=== PATIENT | male | born 1935 | race American Indian/Alaskan Native ===

== ENCOUNTER 2021-03-11 15:03 | Inpatient (IN) | payer MEDICARE ==
--- NOTE | 2021-03-11 15:42 | XRay Report ---
CHEST 1 VIEW INDICATION: RESP DISTRESS. COMPARISON: None FINDINGS: Support devices: None. Heart: Within normal limits. Lungs/Pleura: Subtle bibasilar lung infiltrates are identified. No pleural effusion or pneumothorax. Additional findings: None. IMPRESSION: Bibasilar lung infiltrates. Atypical pneumonia such as Covid is not excluded. Signer Name: Ezequiel Kothari Jr, MD Signed: 03/11/2021 3:37 PM Workstation Name: [id number]
[2021-03-11 16:11] LABS: Basophils % (Auto) 0.1 % (0.0-1.8); Eosinophils % (Auto) 0.4 % (0.0-4.3); Hematocrit 37.8 % (35.5-45.6); Lymphocytes # (Auto) 0.6 K/mm3 (1.2-5.4); Lymphocytes % (Auto) 5.1 % (13.4-35.0); Mean Corpuscular HGB Conc 32 % (32-34); Mean Corpuscular Volume 90 fl (84-94); Monocytes # (Auto) 0.6 K/mm3 (0.0-0.8); Monocytes % (Auto) 4.6 % (0.0-7.3); Red Blood Count 4.21 M/mm3 (3.65-5.03); Red Cell Distribution Width 13.8 % (13.2-15.2)
[2021-03-11] MEDS ORDERED: dexAMETHasone 20 MG/5 ML VIAL IV ONE (16:15)
--- NOTE | 2021-03-11 16:15 | Emergency Department Report ---
ED Shortness of Breath HPI - General Chief Complaint: Dyspnea/Respdistress Stated Complaint: AMS/RESP Time Seen by Provider: 03/11/21 15:17 Source: EMS, old records reviewed (No previous medical record) Mode of arrival: Stretcher Limitations: Altered Mental Status - History of Present Illness Initial Comments: 85-year-old male with a past medical history of dementia, hypertension diabetes, recent Covid infection [facility] that started at 1 PM. Patient remained saturation was reported to be 87. He was placed in our breather during hospital 97% in transport. Blood glucose 78 as per EMS. As per [facility] patient was diagnosed with COVID-19 on March 02. Patient is unable to provide any history of present illness - Related Data Allergies Allergy/AdvReac Type Severity Reaction Status Date / Time No Known Allergies Allergy Unverified 03/11/21 15:05 ED Review of Systems ROS: Stated complaint: AMS/RESP Other details as noted in HPI Comment: Unobtainable due to pts medical conditions ED Past Medical Hx - Past Medical History Hx Hypertension: Yes Hx Diabetes: Yes Hx Dementia: Yes - Surgical History Past Surgical History?: No ED Physical Exam - General Limitations: Altered Mental Status - Other Other exam information: General: No acute distress Head: Atraumatic Eyes: normal appearance Neck: Normal appearance, no midline tenderness Chest: Tachypnea, clear breath CV: Regular rate and rhythm Abdomen: Soft, normal bowel sounds, nontender, nondistended, no rebound or guarding Back: Normal inspection Extremity: Left arm edema with decreased movement compared to the right Neuro: Awake speaking, following intermittent commands, 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 Equal lower extremity movement Skin: No rash ED Course Vital Signs 03/11/21 03/11/21 03/11/21 15:12 17:16 18:15 Temperature 98.1 F Pulse Rate 81 87 84 Respiratory 16 17 24 Rate Blood Pressure 96/52 Blood Pressure 139/76 88/54 [Left] O2 Sat by Pulse 90 94 97 Oximetry 03/11/21 03/11/21 03/11/21 18:31 18:45 19:01 Temperature Pulse Rate 87 82 81 Respiratory 25 H 20 22 Rate Blood Pressure 87/53 95/53 101/49 Blood Pressure [Left] O2 Sat by Pulse 99 100 99 Oximetry - Reevaluation(s) Reevaluation #1: 03/11/21 17:40 As of when the patient was hypoglycemic and D50 IV was ordered by nurse. There was a delay in receiving D50 due to national shortage and there was not any D50 ampules in the emergency department and a delay in obtaining it from pharmacy. Patient received glucagon and Zofran IM. I was informed at that time the patien t did not have IV access as requested prior. At this time I was also informed that patient was hypotensive with a systolic in the 80s. Patient prepped for emergent central line and had right femoral central line access obtained. D50 was then obtained at this time and administered through central line. D5 NS and 30 mL/kg bolus of normal saline ordered for IV infusion as per sepsis protocol. Lactic acid obtained due to no hypotension. Patient awaiting IV antibiotic and Decadron administration as ordered several hours ago 03/11/21 17:42 - Central Line Placement Right Femoral Consent Obtained: emergent situation Time Out Performed: Yes Patient Placed on Monitor/Pulse Ox: Yes MD Prep: mask, gown, gloves Central Line Prep: Chlorhexidine scrub Local Anesthesia Used: Lidocaine 1% Amount of Anesthesia Used (mls): 5 Ultrasound Used for Placement: No Central Line Lumen Inserted: triple Reason for Insertion: Emergency Venous Access Bloods Obtained for Lab: Yes Central Line Position: good blood return, sutured in place with nyl Dressing Applied: Tegaderm Patient Tolerated Procedure: well Complications: none ED Medical Decision Making - Lab Data Result diagrams: 03/11/21 15:29 03/11/21 15:29 Lab Results 03/11/21 03/11/21 03/11/21 Range/Units 15:29 15:29 15:29 WBC 12.7 H (4.5-11.0) K/mm3 RBC 4.21 (3.65-5.03) M/mm3 Hgb 12.0 (11.8-15.2) gm/dl Hct 37.8 (35.5-45.6) % MCV 90 (84-94) fl MCH 28 (28-32) pg MCHC 32 (32-34) % RDW 13.8 (13.2-15.2) % Plt Count 97 L (140-440) K/mm3 Lymph % (Auto) 5.1 L (13.4-35.0) % Thomas % (Auto) 4.6 (0.0-7.3) % Eos % (Auto) 0.4 (0.0-4.3) % Baso % (Auto) 0.1 (0.0-1.8) % Lymph # (Auto) 0.6 L (1.2-5.4) K/mm3 [place] # (Auto) 0.6 (0.0-0.8) K/mm3 Eos # (Auto) 0.0 (0.0-0.4) K/mm3 Baso # (Auto) 0.0 (0.0-0.1) K/mm3 Seg Neutrophils % 89.8 H (40.0-70.0) % Seg Neutrophils # 11.4 H (1.8-7.7) K/mm3 PT 13.9 (12.2-14.9) Sec. INR 0.96 (0.87-1.13) APTT 26.8 (24.2-36.6) Sec. ABG pH (7.350-7.450) pH Units ABG pCO2 mm Hg ABG pO2 (80.0-90.0) mm Hg ABG HCO3 (20.0-26.0) mmol/L ABG O2 Saturation (95.0-99.0) % ABG O2 Content (0.0-44) ABG Base Excess (-2.0-3.0) mmol/L ABG Hemoglobin (14.0-18.0) gm/dl ABG Carboxyhemoglobin (0.0-5.0) % ABG Methemoglobin (0.0-1.5) % Oxyhemoglobin (95.0-99.0) % FiO2 % Sodium 141 (137-145) mmol/L Potassium 5.4 H (3.6-5.0) mmol/L Chloride 111.6 H (98-107) mmol/L Carbon Dioxide 17 L (22-30) mmol/L Anion Gap 18 mmol/L BUN 77 H (9-20) mg/dL Creatinine 1.9 H (0.8-1.3) mg/dL Estimated GFR 34 ml/min BUN/Creatinine Ratio 41 % Glucose 64 L (75-100) mg/dL POC Glucose (70-105) mg/dL Lactic Acid (0.7-2.0) mmol/L Calcium 9.5 (8.4-10.2) mg/dL Total Bilirubin 0.50 (0.1-1.2) mg/dL AST 31 (5-40) units/L ALT 27 (7-56) units/L Alkaline Phosphatase 86 (35-129) units/L Total Creatine Kinase 107 (55-170) units/L CK-MB (CK-2) 3.4 (0.0-4.0) ng/mL CK-MB (CK-2) Rel Index 3.1 (0-4) Troponin T 0.041 H (0.00-0.029) ng/mL NT-Pro-B Natriuret Pep 143.1 (0-900) pg/mL Total Protein 6.1 L (6.3-8.2) g/dL Albumin 2.8 L (3.9-5) g/dL Albumin/Globulin Ratio 0.8 % Triglycerides 141 (2-149) mg/dL Cholesterol 129 (50-199) mg/dL LDL Cholesterol Direct 65 (50-130) mg/dL HDL Cholesterol 37 L (40-59) mg/dL Cholesterol/HDL Ratio 3.48 % 03/11/21 03/11/21 03/11/21 Range/Units 15:35 16:41 17:10 WBC (4.5-11.0) K/mm3 RBC (3.65-5.03) M/mm3 Hgb (11.8-15.2) gm/dl Hct (35.5-45.6) % MCV (84-94) fl MCH (28-32) pg MCHC (32-34) % RDW (13.2-15.2) % Plt Count (140-440) K/mm3 Lymph % (Auto) (13.4-35.0) % [place] % (Auto) (0.0-7.3) % Eos % (Auto) (0.0-4.3) % Baso % (Auto) (0.0-1.8) % Lymph # (Auto) (1.2-5.4) K/mm3 Thomas # (Auto) (0.0-0.8) K/mm3 Eos # (Auto) (0.0-0.4) K/mm3 Baso # (Auto) (0.0-0.1) K/mm3 Seg Neutrophils % (40.0-70.0) % Seg Neutrophils # (1.8-7.7) K/mm3 PT (12.2-14.9) Sec. INR (0.87-1.13) APTT (24.2-36.6) Sec. ABG pH 7.385 (7.350-7.450) pH Units ABG pCO2 34.0 mm Hg ABG pO2 62.9 L (80.0-90.0) mm Hg ABG HCO3 19.8 L (20.0-26.0) mmol/L ABG O2 Saturation 92.7 L (95.0-99.0) % ABG O2 Content 14.9 (0.0-44) ABG Base Excess -4.5 L (-2.0-3.0) mmol/L ABG Hemoglobin 11.7 L (14.0-18.0) gm/dl ABG Carboxyhemoglobin 1.3 (0.0-5.0) % ABG Methemoglobin 0.5 (0.0-1.5) % Oxyhemoglobin 91.0 L (95.0-99.0) % FiO2 35 % Sodium (137-145) mmol/L Potassium (3.6-5.0) mmol/L Chloride (98-107) mmol/L Carbon Dioxide (22-30) mmol/L Anion Gap mmol/L BUN (9-20) mg/dL Creatinine (0.8-1.3) mg/dL Estimated GFR ml/min BUN/Creatinine Ratio % Glucose (75-100) mg/dL POC Glucose 30 L 30 L (70-105) mg/dL Lactic Acid (0.7-2.0) mmol/L Calcium (8.4-10.2) mg/dL Total Bilirubin (0.1-1.2) mg/dL AST (5-40) units/L ALT (7-56) units/L Alkaline Phosphatase (35-129) units/L Total Creatine Kinase (55-170) units/L CK-MB (CK-2) (0.0-4.0) ng/mL CK-MB (CK-2) Rel Index (0-4) Troponin T (0.00-0.029) ng/mL NT-Pro-B Natriuret Pep (0-900) pg/mL Total Protein (6.3-8.2) g/dL Albumin (3.9-5) g/dL Albumin/Globulin Ratio % Triglycerides (2-149) mg/dL Cholesterol (50-199) mg/dL LDL Cholesterol Direct (50-130) mg/dL HDL Cholesterol (40-59) mg/dL Cholesterol/HDL Ratio % 03/11/21 03/11/21 03/11/21 Range/Units 17:46 18:35 18:35 WBC (4.5-11.0) K/mm3 RBC (3.65-5.03) M/mm3 Hgb (11.8-15.2) gm/dl Hct (35.5-45.6) % MCV (84-94) fl MCH (28-32) pg MCHC (32-34) % RDW (13.2-15.2) % Plt Count (140-440) K/mm3 Lymph % (Auto) (13.4-35.0) % Thomas % (Auto) (0.0-7.3) % Eos % (Auto) (0.0-4.3) % Baso % (Auto) (0.0-1.8) % Lymph # (Auto) (1.2-5.4) K/mm3 Thomas # (Auto) (0.0-0.8) K/mm3 Eos # (Auto) (0.0-0.4) K/mm3 Baso # (Auto) (0.0-0.1) K/mm3 Seg Neutrophils % (40.0-70.0) % Seg Neutrophils # (1.8-7.7) K/mm3 PT (12.2-14.9) Sec. INR (0.87-1.13) APTT (24.2-36.6) Sec. ABG pH (7.350-7.450) pH Units ABG pCO2 mm Hg ABG pO2 (80.0-90.0) mm Hg ABG HCO3 (20.0-26.0) mmol/L ABG O2 Saturation (95.0-99.0) % ABG O2 Content (0.0-44) ABG Base Excess (-2.0-3.0) mmol/L ABG Hemoglobin (14.0-18.0) gm/dl ABG Carboxyhemoglobin (0.0-5.0) % ABG Methemoglobin (0.0-1.5) % Oxyhemoglobin (95.0-99.0) % FiO2 % Sodium (137-145) mmol/L Potassium (3.6-5.0) mmol/L Chloride (98-107) mmol/L Carbon Dioxide (22-30) mmol/L Anion Gap mmol/L BUN (9-20) mg/dL Creatinine (0.8-1.3) mg/dL Estimated GFR ml/min BUN/Creatinine Ratio % Glucose (75-100) mg/dL POC Glucose 195 H (70-105) mg/dL Lactic Acid 1.80 (0.7-2.0) mmol/L Calcium (8.4-10.2) mg/dL Total Bilirubin (0.1-1.2) mg/dL AST (5-40) units/L ALT (7-56) units/L Alkaline Phosphatase (35-129) units/L Total Creatine Kinase (55-170) units/L CK-MB (CK-2) (0.0-4.0) ng/mL CK-MB (CK-2) Rel Index (0-4) Troponin T 0.016 (0.00-0.029) ng/mL NT-Pro-B Natriuret Pep (0-900) pg/mL Total Protein (6.3-8.2) g/dL Albumin (3.9-5) g/dL Albumin/Globulin Ratio % Triglycerides (2-149) mg/dL Cholesterol (50-199) mg/dL LDL Cholesterol Direct (50-130) mg/dL HDL Cholesterol (40-59) mg/dL Cholesterol/HDL Ratio % - EKG Data -: EKG Interpreted by Me (Nonspecific intraventricular conduction delay with LAD, no STEMI, artifact) EKG shows normal: sinus rhythm, ST-T waves (No ST elevation) Rate: normal (86) - EKG Data When compared to previous EKG there are: previous EKG unavailable - Radiology Data Radiology results: report reviewed CHEST 1 VIEW INDICATION: RESP DISTRESS. COMPARISON: None FINDINGS: Support devices: None. Heart: Within normal limits. Lungs/Pleura: Subtle bibasilar lung infiltrates are identified. No pleural effusion or pneumothorax. Additional findings: None. IMPRESSION: Bibasilar lung infiltrates. Atypical pneumonia such as Covid is not excluded. - Medical Decision Making 85-year-old male [facility] with recent COVID-19 diagnosis. X-ray confirms infiltrates. Patient also had episode of hypoglycemia and hypotension if treated with D50 and IV fluid bolus with improvement. Central line placed since nursing staff had difficulty obtaining peripheral IV access and to treat patient's hypotension. Patient does have mild elevation troponin with renal insufficiency with elevated BUN to creatinine ratio suggestive of dehydration. Mild hyperkalemia noted without peaked T waves on EKG. Patient placed on D5 NS. In addition to 30 MO KG bolus of normal saline. Antibiotics ordered for community-acquired pneumonia. Decadron for Covid related hypoxia/pneumonia. Patient requiring supplemental oxygenation for acute hypoxia. hospitalist to admit Critical Care Time: Yes Critical care time in (mins) excluding proc time.: 35 Critical care attestation.: If time is entered above; I have spent that time in minutes in the direct care of this critically ill patient, excluding procedure time. Critical Care Time: 35 Minutes of critical care time excluding procedures were used in the care of the patient. I discussed treatment plan with the nursing team members. I reviewed electronic record. Patient required multiple interventions and reassessments. ED Disposition Clinical Impression: COVID-19, Pneumonia, Acute respiratory failure with hypoxia, Sepsis, Hypoglycemia, Dementia, Renal insufficiency, Elevated troponin, Thrombocytopenia Disposition: 09 ADMITTED INPATIENT Is pt being admited?: Yes Condition: Stable Instructions: Bacterial Pneumonia (ED) Time of Disposition: 18:54 (Dr Khan/hospitalist)
[2021-03-11] MEDS ORDERED: cefTRIAXone/NS 2 GM/100 ML 2 GM/100 ML BAG IV ONE (16:16)
[2021-03-11 16:20] LABS: ABG Base Excess -4.5 mmol/L (-2.0-3.0); ABG HCO3 19.8 mmol/L (20.0-26.0); ABG Methemoglobin 0.5 % (0.0-1.5); ABG Oxygen Saturation 92.7 % (95.0-99.0); ABG PH 7.385 pH Units (7.350-7.450); ABG PO2 62.9 mm Hg (80.0-90.0)
[2021-03-11 16:22] LABS: Platelet Count 97 K/mm3 (140-440)
[2021-03-11 16:24] LABS: Creatine Kinase MB 3.4 ng/mL (0.0-4.0)
[2021-03-11 16:25] LABS: Albumin 2.8 g/dL (3.9-5); Calcium 9.5 mg/dL (8.4-10.2)
[2021-03-11] MEDS ORDERED: DEXTROSE 50% IN WATER (25GM) 50 ML SYRINGE IV ONE (16:35)
[2021-03-11 16:37] LABS: Chol/HDL Ratio 3.48 %; INR 0.96 (0.87-1.13); Partial Thromboplastin Time 26.8 Sec. (24.2-36.6)
[2021-03-11] MEDS ORDERED: DEXTROSE 10% *Hypoglycemia IV PRN (16:48)
[2021-03-11] MEDS ORDERED: ASPIRIN 300 MG RECT SUPP PR ONE (16:48)
[2021-03-11] MEDS ORDERED: GLUCAGON (HUMAN RECOMBINANT) 1 MG/ML INJ ONE (16:49)
[2021-03-11] MEDS ORDERED: GLUCAGON (HUMAN RECOMBINANT) 1 MG/ML INJ IV ONE (16:49)
[2021-03-11] MEDS ORDERED: ONDANSETRON 4 MG/2 ML INJ IV ONE (16:52)
[2021-03-11] MEDS ORDERED: ONDANSETRON 4 MG/2 ML INJ ONE (16:53)
[2021-03-11] MEDS ORDERED: AZITHROMYCIN/NS 500 MG/250 ML 500 MG/250 ML BAG IV ONE (17:00)
[2021-03-11] MEDS ORDERED: D5W/0.45% NACL 1,000 ML IV SCH (17:00)
[2021-03-11] MEDS ORDERED: SODIUM CHLORIDE 0.9% 1000 ML IV SOLN IV ONE (17:39)
[2021-03-11] MEDS ORDERED: D5W/0.9% NACL 1,000 ML IV SCH (18:00)
--- NOTE | 2021-03-11 20:08 | History and Physical Report ---
History of Present Illness Date of examination: 03/11/21 Date of admission: 03/11/2021 Chief complaint: Shortness of breath since a.m. History of present illness: 85-year-old male with recent history of Covid Pneumonia sent from the [facility] for severe respiratory distress and found.. Patient saturations were 87. Patient was placed on nonrebreather and oxygen went up to 97%. Blood glucose was 78 as per EMS. Patient continued to be short of breath in the emergency room. Very poor historian. Patient was diagnosed with COVID-19 on March 02. Since then he has been slowly deteriorating. In the emergency room patient became hypotensive and had to be started on dopamine drip--hence ICU admission - Past Medical History --Hypertension: Yes --Diabetes: Yes --Dementia: Yes - Surgical History -- No - Social history --lives in [facility] --Not a smoker or alcohol - Family history -- unavailable Review of Systems ROS: Constitutional no weight loss or weight gain no fever or chills HEENT no sore throat no post nasal drip no diplopia Neck no neck stiffness no lymph gland enlargement Chest and lungs short of breath CVS no chest pain no diaphoresis no palpitations GI no nausea no vomiting no diarrhea Genitourinary system no dysuria no flank pain Musculoskeletal system no muscle pains no joint pains LEAD COOK no syncope no seizures Skin no rash no itching Psychiatric no depression no homicidal or suicidal tendencies Hematologic no lymphedema or bruising Endocrine no polydipsia no polyuria no cold intolerance no heat intolerance Medications and Allergies Allergies Allergy/AdvReac Type Severity Reaction Status Date / Time No Known Allergies Allergy Unverified 03/11/21 15:05 Active Meds: Active Medications Dextrose (Dextrose 10% *Hypoglycemia) 0 ml IV PRN PRN PRN Reason: Hypoglycemia Dextrose/Sodium Chloride (D5ns) 1,000 mls @ 150 mls/hr IV DIRECT MARIA DOLORES Exam - Constitutional Vitals: Temp Pulse Resp BP Pulse Ox 98.1 F 81 22 101/49 99 03/11/21 15:12 03/11/21 19:01 03/11/21 19:01 03/11/21 19:01 03/11/21 19:01 General appearance: Present: severe distress, well-nourished - EENT Eyes: Present: PERRL ENT: hearing intact, clear oral mucosa - Neck Neck: Present: supple, normal ROM - Respiratory Respiratory effort: normal Respiratory: bilateral: CTA - Cardiovascular Heart rate: 108 Rhythm: regular Heart Sounds: Present: S1 & S2. Absent: rub, click - Extremities Extremities: no ischemia, pulses symmetrical, No edema Peripheral Pulses: within normal limits - Abdominal General gastrointestinal: Present: soft, non-tender, non-distended, normal bowel sounds Male genitourinary: Present: normal - Integumentary Integumentary: Present: clear, warm, dry - Musculoskeletal Musculoskeletal: strength equal bilaterally, generalized weakness - Psychiatric Psychiatric: appropriate mood/affect, other (Dementia-moderate) - Neurologic Neurologic: CNII-XII intact, moves all extremities - Allied Health Allied health notes reviewed: case management HEART Score - HEART Score Troponin: Troponin T 0.016 ng/mL (0.00-0.029) 03/11/21 18:35 Results - Labs CBC & Chem 7: 03/12/21 04:31 03/12/21 04:31 Labs: Laboratory Last Values WBC 12.7 K/mm3 (4.5-11.0) H 03/11/21 15:29 RBC 4.21 M/mm3 (3.65-5.03) 03/11/21 15:29 Hgb 12.0 gm/dl (11.8-15.2) 03/11/21 15:29 Hct 37.8 % (35.5-45.6) 03/11/21 15:29 MCV 90 fl (84-94) 03/11/21 15:29 MCH 28 pg (28-32) 03/11/21 15:29 MCHC 32 % (32-34) 03/11/21 15:29 RDW 13.8 % (13.2-15.2) 03/11/21 15:29 Plt Count 97 K/mm3 (140-440) L 03/11/21 15:29 Lymph % (Auto) 5.1 % (13.4-35.0) L 03/11/21 15:29 [place] % (Auto) 4.6 % (0.0-7.3) 03/11/21 15:29 Eos % (Auto) 0.4 % (0.0-4.3) 03/11/21 15:29 Baso % (Auto) 0.1 % (0.0-1.8) 03/11/21 15:29 Lymph # (Auto) 0.6 K/mm3 (1.2-5.4) L 03/11/21 15:29 [place] # (Auto) 0.6 K/mm3 (0.0-0.8) 03/11/21 15:29 Eos # (Auto) 0.0 K/mm3 (0.0-0.4) 03/11/21 15:29 Baso # (Auto) 0.0 K/mm3 (0.0-0.1) 03/11/21 15:29 Seg Neutrophils % 89.8 % (40.0-70.0) H 03/11/21 15: Seg Neutrophils # 11.4 K/mm3 (1.8-7.7) H 03/11/21 15:29 PT 13.9 Sec. (12.2-14.9) 03/11/21 15:29 INR 0.96 (0.87-1.13) 03/11/21 15:29 APTT 26.8 Sec. (24.2-36.6) 03/11/21 15:29 ABG pH 7.385 pH Units (7.350-7.450) 03/11/21 15:35 ABG pCO2 34.0 mm Hg 03/11/21 15:35 ABG pO2 62.9 mm Hg (80.0-90.0) L 03/11/21 15:35 ABG HCO3 19.8 mmol/L (20.0-26.0) L 03/11/21 15:35 ABG O2 Saturation 92.7 % (95.0-99.0) L 03/11/21 15:35 ABG O2 Content 14.9 (0.0-44) 03/11/21 15:35 ABG Base Excess -4.5 mmol/L (-2.0-3.0) L 03/11/21 15:35 ABG Hemoglobin 11.7 gm/dl (14.0-18.0) L 03/11/21 15:35 ABG Carboxyhemoglobin 1.3 % (0.0-5.0) 03/11/21 15:35 ABG Methemoglobin 0.5 % (0.0-1.5) 03/11/21 15:35 Oxyhemoglobin 91.0 % (95.0-99.0) L 03/11/21 15:35 FiO2 35 % 03/11/21 15:35 Sodium 141 mmol/L (137-145) 03/11/21 15:29 Potassium 5.4 mmol/L (3.6-5.0) H 03/11/21 15:29 Chloride 111.6 mmol/L (98-107) H 03/11/21 15:29 Carbon Dioxide 17 mmol/L (22-30) L 03/11/21 15:29 Anion Gap 18 mmol/L 03/11/21 15:29 BUN 77 mg/dL (9-20) H 03/11/21 15:29 Creatinine 1.9 mg/dL (0.8-1.3) H 03/11/21 15:29 Estimated GFR 34 ml/min 03/11/21 15:29 BUN/Creatinine Ratio 41 % 03/11/21 15:29 Glucose 64 mg/dL (75-100) L 03/11/21 15:29 POC Glucose 195 mg/dL (70-105) H 03/11/21 17:46 Lactic Acid 1.80 mmol/L (0.7-2.0) 03/11/21 18:35 Calcium 9.5 mg/dL (8.4-10.2) 03/11/21 15:29 Total Bilirubin 0.50 mg/dL (0.1-1.2) 03/11/21 15:29 AST 31 units/L (5-40) 03/11/21 15:29 ALT 27 units/L (7-56) 03/11/21 15:29 Alkaline Phosphatase 86 units/L (35-129) 03/11/21 15:29 Total Creatine Kinase 107 units/L (55-170) 03/11/21 15:29 CK-MB (CK-2) 3.4 ng/mL (0.0-4.0) 03/11/21 15:29 CK-MB (CK-2) Rel Index 3.1 (0-4) 03/11/21 15:29 Troponin T 0.016 ng/mL (0.00-0.029) 03/11/21 18:35 NT-Pro-B Natriuret Pep 143.1 pg/mL (0-900) 03/11/21 15:29 Total Protein 6.1 g/dL (6.3-8.2) L 03/11/21 15:29 Albumin 2.8 g/dL (3.9-5) L 03/11/21 15:29 Albumin/Globulin Ratio 0.8 % 03/11/21 15:29 Triglycerides 141 mg/dL (2-149) 03/11/21 15:29 Cholesterol 129 mg/dL (50-199) 03/11/21 15:29 LDL Cholesterol Direct 65 mg/dL (50-130) 03/11/21 15:29 HDL Cholesterol 37 mg/dL (40-59) L 03/11/21 15:29 Cholesterol/HDL Ratio 3.48 % 03/11/21 15:29 Short CBC 03/11/21 03/12/21 Range/Units 15:29 04:31 WBC 12.7 H 7.9 (4.5-11.0) K/mm3 Hgb 12.0 11.2 L (11.8-15.2) gm/dl Hct 37.8 35.1 L (35.5-45.6) % Plt Count 97 L 79 L (140-440) K/mm3 BMP 03/11/21 03/12/21 15:29 04:31 Sodium 141 141 Potassium 5.4 H 4.5 Chloride 111.6 H 113.2 H Carbon Dioxide 17 L 19 L BUN 77 H 70 H Creatinine 1.9 H 1.7 H Glucose 64 L 178 H Calcium 9.5 8.4 Cardiac Enzymes 03/11/21 03/11/21 03/11/21 Range/Units 15:29 18:35 21:07 Total Creatine Kinase 107 (55-170) units/L CK-MB (CK-2) 3.4 (0.0-4.0) ng/mL Troponin T 0.041 H 0.016 0.036 H D (0.00-0.029) ng/mL Liver Function 03/11/21 03/12/21 Range/Units 15:29 04:31 Total Bilirubin 0.50 0.40 (0.1-1.2) mg/dL AST 31 16 (5-40) units/L ALT 27 22 (7-56) units/L Alkaline Phosphatase 86 73 (35-129) units/L Albumin 2.8 L 2.7 L (3.9-5) g/dL - Imaging and Cardiology EKG: report reviewed (Sinus tachycardia, no acute ST-T wave changes) Chest x-ray: report reviewed Imaging and Cardiology: Chest x-ray Bibasilar lung infiltrates. Atypical pneumonia suggest Covid is not excluded Assessment and Plan Assessment and plan: Critical care statement The high probability OF a clinically significant sudden or life-threatening deterioration of the cardiorespiratory system and endocrine system required my full and direct attention, intervention and postoperative management. The aggregate critical care time was 45 minutes. The time is in addition to time spent performing reported procedures but includes the followin: Data review and interpretation 2: Patient assessment and monitoring of vital signs 3: Documentation 4:: Medication orders and management Advance Directives: Yes (Full code) VTE prophylaxis?: Chemical Plan of care discussed with patient/family: Yes - Patient Problems (1) Acute respiratory failure with hypoxia Current Visit: Yes Status: Acute Plan to address problem: Secondary to bilateral pneumonia Possible Covid Possible ARDS Oxygen supplementation as necessary CODE STATUS to be determined Primary team to call the family and discuss CODE STATUS (2) Bilateral pneumonia Current Visit: Yes Status: Acute Plan to address problem: IV antibiotics in the form of Zithromax and Rocephin Rule out Covid (3) Person under investigation for COVID-19 Current Visit: Yes Status: Acute Plan to address problem: Rule out Covid Possible Covid pneumonia and ARDS (4) 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 Current Visit: Yes Status: Acute Plan to address problem: Patient may still be having active Covid 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 (5) T2DM (type 2 diabetes mellitus) Current Visit: Yes Status: Chronic Plan to address problem: Coverage for now (6) Dementia Current Visit: Yes Status: Acute Plan to address problem: Supportive care (7) Hyperkalemia Current Visit: Yes Status: Acute Plan to address problem: Calcium gluconate and Kayexalate given (8) DVT prophylaxis Current Visit: Yes Status: Acute Plan to address problem: On anticoagulation GI prophylaxis (9) Advance care planning Current Visit: Yes Status: Acute Plan to address problem: Disease education conducted, care plan discussed, diagnosis discussed, prognosis discussed. Patient is full code. Family acknowledges understanding and agreement. With care care plan +30 minutes.
[2021-03-11] MEDS ORDERED: ACETAMINOPHEN 325 MG TAB PO PRN (20:13)
[2021-03-11] MEDS ORDERED: ONDANSETRON 4 MG/2 ML INJ IV PRN (20:13)
[2021-03-11] MEDS ORDERED: SODIUM CHLORIDE 0.9% 1000 ML 1,000 ML IV SCH (20:15)
[2021-03-11] MEDS ORDERED: METOCLOPRAMIDE 10 MG/2 ML INJ IV PRN ×2 (20:16→20:28)
[2021-03-11] MEDS ORDERED: oxyCODONE /ACETAMINOPHEN 5-325MG TAB PO PRN (20:16)
[2021-03-11] MEDS ORDERED: DOPamine 800 MG/D5W 250ML 800 MG/250 ML BAG IV ONE (20:40)
[2021-03-11] MEDS ORDERED: DOPamine 800 MG in DEXTROSE 5% IN WATER 230 ML IV SCH (22:00)
[2021-03-11] MEDS: ENOXAPARIN 30 MG/0.3 ML INJ SUB-Q SCH (22:18)
[2021-03-11] MEDS: D5W/0.45% NACL 1,000 ML IV SCH (22:40)
[2021-03-12 05:04] LABS: Albumin 2.7 g/dL (3.9-5); Calcium 8.4 mg/dL (8.4-10.2)
[2021-03-12 05:10] LABS: Hematocrit 35.1 % (35.5-45.6); Hemoglobin 11.2 gm/dl (11.8-15.2); Mean Corpuscular HGB Conc 32 % (32-34); Mean Corpuscular Volume 89 fl (84-94); Red Blood Count 3.94 M/mm3 (3.65-5.03); Red Cell Distribution Width 14.5 % (13.2-15.2)
[2021-03-12 05:17] LABS: Platelet Count 79 K/mm3 (140-440)
[2021-03-12 06:13] LABS: Anisocytosis 1+; Basophils % (Manual) 0 % (0.0-1.8); Platelet Estimate Consistent w Auto; Total Cells Counted 100
--- NOTE | 2021-03-12 07:43 | Progress Note ---
Assessment and Plan Assessment and plan: History of present illness: 85-year-old male with recent history of Covid [facility] and found.. Patient saturations were 87. Patient was placed on nonrebreather and oxygen went up to 97%. Blood glucose was 78 as per EMS. Patient continued to be short of breath in the emergency room. Very poor historian. Patient was diagnosed with COVID-19 on March 02. Since then he has been slowly deteriorating. In the emergency room patient became hypotensive and had to be started on dopamine drip--hence ICU admission Code: Full code Hospital Course: 03/12/2021: Continue to wean O2 as tolerated. Advised RN to wean off dopamine gtt. If pressors support is needed, would recommend levophed instead however will defer to CCM. Called patient daughter Chika Harris for update. Per daughter, patient was covid positive jan 31 and admitted at [facility]. [facility] [place]. She states that he had a prolonged stay at rehab facility because he was positive again on Mar 02. Yesterday because of his oxygen saturation drop, it prompted patient to be admitted to our facility. After discussing the details of her father's clinical picture, she voiced that she would like patient to remain full code. Assessment and Plan # Acute respiratory failure with hypoxia -Secondary to bilateral pneumonia -RT pcr pending -Oxygen supplementation as 2L. -CCM consulted #Septic Shock POA (resolving) - was placed on dopamine gtt, bp significantly improved. advised RN to wean - was rehab [facility] facility. - maintain map > 65 - Bcx, Ucx, Scx pending - Rocephin IV and Zithromax IV. - CCM consulted. #Acute metabolic encephalopathy (improving) - patient was apparenty functional prior to hospitalization on jan 31 at [facility]. lives with , able to get groceries, etc. - confused on my encounter but appears to be improving from admission based on RN report. - likely due to underlying sepsis. 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 Coverage for now # Dementia Supportive care # Hyperkalemia Calcium gluconate and Kayexalate given # DVT prophylaxis On anticoagulation GI prophylaxis # Moderate Malnutrition # Advance care planning Disease education conducted, care plan discussed, diagnosis discussed, prognosis discussed. Patient is full code. Family acknowledges understanding and agreement. With care care plan +30 minutes. The high probability of a clinically significant, sudden or life threatening d eterioration of the [multi] system(s) required my full and direct attention, intervention and personal management. The aggregate critical care time was [60] minutes. This time is in addition to time spent performing reported procedures but includes the following: [x] Data Review and interpretation [x] Patient assessment and monitoring of vital signs [x] Documentation [x] Medication orders and management History Interval history: Resting comfortably on my encounter. In no distress. Denied acute shortness of breath. Alert however, does not appear to be oriented. Currently on nasal cannula. Hospitalist Physical - Physical exam Narrative exam: Physical Exam: VITAL SIGNS: Reviewed. GENERAL: The patient appears normally developed, Vital signs as documented. on nasal cannula HEAD: No signs of head trauma. EYES: Pupils are equal. Extraocular motions intact. EARS: Hearing grossly intact. MOUTH: Oropharynx is normal. NECK: No adenopathy, no JVD. CHEST: Bl rhonchi CARDIAC: Regular rate and rhythm. S1 and S2, without murmurs, gallops, or rubs. VASCULAR: No Edema. Peripheral pulses normal and equal in all extremities. ABDOMEN: Soft, non tender and non distended. No rebound or guarding, and no masses palpated. Bowel Sounds normal. MUSCULOSKELETAL: Good range of motion of all major joints. Extremities without clubbing, cyanosis or edema. NEUROLOGIC EXAM: Alert and oriented x 1. no focal sensory or strength deficits. PSYCHIATRIC: Mood normal. SKIN: detail exam as documented in skin assessment - Constitutional Vitals: Temp Pulse Resp BP Pulse Ox 98.1 F 110 H 15 101/68 97 03/11/21 15:12 03/12/21 06:31 03/12/21 06:31 03/12/21 06:31 03/12/21 06:31 General appearance: Present: severe distress, well-nourished HEART Score - HEART Score Troponin: Troponin T 0.036 ng/mL (0.00-0.029) H D 03/11/21 21:07 Results - Labs CBC & Chem 7: 03/12/21 04:31 03/12/21 04:31 Labs: Laboratory Last Values WBC 7.9 K/mm3 (4.5-11.0) 03/12/21 04:31 RBC 3.94 M/mm3 (3.65-5.03) 03/12/21 04:31 Hgb 11.2 gm/dl (11.8-15.2) L 03/12/21 04:31 Hct 35.1 % (35.5-45.6) L 03/12/21 04:31 MCV 89 fl (84-94) 03/12/21 04:31 MCH 28 pg (28-32) 03/12/21 04:31 MCHC 32 % (32-34) 03/12/21 04:31 RDW 14.5 % (13.2-15.2) 03/12/21 04:31 Plt Count 79 K/mm3 (140-440) L 03/12/21 04:31 Lymph % (Auto) 5.1 % (13.4-35.0) L 03/11/21 15:29 [place] % (Auto) 4.6 % (0.0-7.3) 03/11/21 15:29 Eos % (Auto) 0.4 % (0.0-4.3) 03/11/21 15:29 Baso % (Auto) 0.1 % (0.0-1.8) 03/11/21 15: Lymph # (Auto) 0.6 K/mm3 (1.2-5.4) L 03/11/21 15:29 [place] # (Auto) 0.6 K/mm3 (0.0-0.8) 03/11/21 15:29 Eos # (Auto) 0.0 K/mm3 (0.0-0.4) 03/11/21 15:29 Baso # (Auto) 0.0 K/mm3 (0.0-0.1) 03/11/21 15:29 Add Manual Diff Complete 03/12/21 04:31 Total Counted 100 03/12/21 04:31 Seg Neutrophils % Sanitary Aide 03/12/21 04:31 Seg Neuts % (Manual) 95.0 % (40.0-70.0) H 03/12/21 04:31 Band Neutrophils % 0 % 03/12/21 04:31 Lymphocytes % (Manual) 1.0 % (13.4-35.0) L 03/12/21 04:31 Reactive Lymphs % (Man) 0 % 03/12/21 04:31 Monocytes % (Manual) 3.0 % (0.0-7.3) 03/12/21 04:31 Eosinophils % (Manual) 1.0 % (0.0-4.3) 03/12/21 04:31 Basophils % (Manual) 0 % (0.0-1.8) 03/12/21 04:31 Metamyelocytes % 0 % 03/12/21 04:31 Myelocytes % 0 % 03/12/21 04:31 Promyelocytes % 0 % 03/12/21 04:31 Blast Cells % 0 % 03/12/21 04:31 Nucleated RBC % Not Reportable 03/12/21 04:31 Seg Neutrophils # 11.4 K/mm3 (1.8-7.7) H 03/11/21 15:29 Seg Neutrophils # Man 7.5 K/mm3 (1.8-7.7) 03/12/21 04:31 Band Neutrophils # 0.0 K/mm3 03/12/21 04:31 Lymphocytes # (Manual) 0.1 K/mm3 (1.2-5.4) L 03/12/21 04:31 Abs React Lymphs (Man) 0.0 K/mm3 03/12/21 04:31 Monocytes # (Manual) 0.2 K/mm3 (0.0-0.8) 03/12/21 04:31 Eosinophils # (Manual) 0.1 K/mm3 (0.0-0.4) 03/12/21 04:31 Basophils # (Manual) 0.0 K/mm3 (0.0-0.1) 03/12/21 04:31 Metamyelocytes # 0.0 K/mm3 03/12/21 04:31 Myelocytes # 0.0 K/mm3 03/12/21 04:31 Promyelocytes # 0.0 K/mm3 03/12/21 04:31 Blast Cells # 0.0 K/mm3 03/12/21 04:31 WBC Morphology Not Reportable 03/12/21 04:31 Hypersegmented Neuts Not Reportable 03/12/21 04:31 Hyposegmented Neuts Not Reportable 03/12/21 04:31 Hypogranular Neuts Not Reportable 03/12/21 04:31 Smudge Cells Not Reportable 03/12/21 04:31 Toxic Granulation Not Reportable 03/12/21 04:31 Toxic Vacuolation Not Reportable 03/12/21 04:31 Dohle Bodies Not Reportable 03/12/21 04:31 Pelger-Huet Anomaly Not Reportable 03/12/21 04:31 Nicole Rods Not Reportable 03/12/21 04:31 Platelet Estimate Consistent w auto 03/12/21 04:31 Clumped Platelets Not Reportable 03/12/21 04:31 Plt Clumps, EDTA Not Reportable 03/12/21 04:31 Large Platelets Not Reportable 03/12/21 04:31 Giant Platelets Not Reportable 03/12/21 04:31 Platelet Satelliting Not Reportable 03/12/21 04:31 Plt Morphology Comment Not Reportable 03/12/21 04:31 RBC Morphology Not Reportable 03/12/21 04:31 Dimorphic RBCs Not Reportable 03/12/21 04:31 Polychromasia Not Reportable 03/12/21 04:31 Hypochromasia Not Reportable 03/12/21 04:31 Poikilocytosis Not Reportable 03/12/21 04:31 Anisocytosis 1+ 03/12/21 04:31 Microcytosis Not Reportable 03/12/21 04:31 Macrocytosis Not Reportable 03/12/21 04:31 Spherocytes Not Reportable 03/12/21 04:31 Pappenheimer Bodies Not Reportable 03/12/21 04:31 Sickle Cells Not Reportable 03/12/21 04:31 Target Cells Not Reportable 03/12/21 04:31 Tear Drop Cells Not Reportable 03/12/21 04:31 Ovalocytes Not Reportable 03/12/21 04:31 Helmet Cells Not Reportable 03/12/21 04:31 Salazar-Gas Bodies Not Reportable 03/12/21 04:31 Eaton Rings Not Reportable 03/12/21 04:31 Jayashree Cells Not Reportable 03/12/21 04:31 Bite Cells Not Reportable 03/12/21 04:31 Crenated Cell Not Reportable 03/12/21 04:31 Elliptocytes Not Reportable 03/12/21 04:31 Acanthocytes (Spur) Not Reportable 03/12/21 04:31 Rouleaux Not Reportable 03/12/21 04:31 Hemoglobin C Crystals Not Reportable 03/12/21 04:31 Schistocytes Not Reportable 03/12/21 04:31 Malaria parasites Not Reportable 03/12/21 04:31 Hernando Bodies Not Reportable 03/12/21 04:31 Hem Pathologist Commnt No 03/12/21 04:31 PT 13.9 Sec. (12.2-14.9) 03/11/21 15:29 INR 0.96 (0.87-1.13) 03/11/21 15:29 APTT 26.8 Sec. (24.2-36.6) 03/11/21 15:29 ABG pH 7.385 pH Units (7.350-7.450) 03/11/21 15:35 ABG pCO2 34.0 mm Hg 03/11/21 15:35 ABG pO2 62.9 mm Hg (80.0-90.0) L 03/11/21 15:35 ABG HCO3 19.8 mmol/L (20.0-26.0) L 03/11/21 15:35 ABG O2 Saturation 92.7 % (95.0-99.0) L 03/11/21 15:35 ABG O2 Content 14.9 (0.0-44) 03/11/21 15:35 ABG Base Excess -4.5 mmol/L (-2.0-3.0) L 03/11/21 15:35 ABG Hemoglobin 11.7 gm/dl (14.0-18.0) L 03/11/21 15:35 ABG Carboxyhemoglobin 1.3 % (0.0-5.0) 03/11/21 15:35 ABG Methemoglobin 0.5 % (0.0-1.5) 03/11/21 15:35 Oxyhemoglobin 91.0 % (95.0-99.0) L 03/11/21 15:35 FiO2 35 % 03/11/21 15:35 Sodium 141 mmol/L (137-145) 03/12/21 04:31 Potassium 4.5 mmol/L (3.6-5.0) 03/12/21 04:31 Chloride 113.2 mmol/L (98-107) H 03/12/21 04:31 Carbon Dioxide 19 mmol/L (22-30) L 03/12/21 04:31 Anion Gap 13 mmol/L 03/12/21 04:31 BUN 70 mg/dL (9-20) H 03/12/21 04:31 Creatinine 1.7 mg/dL (0.8-1.3) H 03/12/21 04:31 Estimated GFR 47 ml/min 03/12/21 04:31 BUN/Creatinine Ratio 41 % 03/12/21 04:31 Glucose 178 mg/dL (75-100) H 03/12/21 04:31 POC Glucose 142 mg/dL (70-105) H 03/12/21 04:33 Lactic Acid 1.20 mmol/L (0.7-2.0) 03/12/21 04:31 Calcium 8.4 mg/dL (8.4-10.2) 03/12/21 04:31 Total Bilirubin 0.40 mg/dL (0.1-1.2) 03/12/21 04:31 AST 16 units/L (5-40) 03/12/21 04:31 ALT 22 units/L (7-56) 03/12/21 04:31 Alkaline Phosphatase 73 units/L (35-129) 03/12/21 04:31 Total Creatine Kinase 107 units/L (55-170) 03/11/21 15:29 CK-MB (CK-2) 3.4 ng/mL (0.0-4.0) 03/11/21 15:29 CK-MB (CK-2) Rel Index 3.1 (0-4) 03/11/21 15:29 Troponin T 0.036 ng/mL (0.00-0.029) H D 03/11/21 21:07 NT-Pro-B Natriuret Pep 143.1 pg/mL (0-900) 03/11/21 15:29 Total Protein 4.7 g/dL (6.3-8.2) L D 03/12/21 04:31 Albumin 2.7 g/dL (3.9-5) L 03/12/21 04:31 Albumin/Globulin Ratio 1.4 % 03/12/21 04:31 Triglycerides 141 mg/dL (2-149) 03/11/21 15:29 Cholesterol 129 mg/dL (50-199) 03/11/21 15:29 LDL Cholesterol Direct 65 mg/dL (50-130) 03/11/21 15:29 HDL Cholesterol 37 mg/dL (40-59) L 03/11/21 15:29 Cholesterol/HDL Ratio 3.48 % 03/11/21 15:29 Microbiology: Microbiology 03/11/21 16:46 Peripheral/Venous Blood Culture - Preliminary Culture in Progress 03/11/21 16:39 Peripheral/Venous Blood Culture - Preliminary Culture in Progress Active Medications - Current Medications Current Medications: Generic Name Dose Route Start Last Admin Trade Name Freq PRN Reason Stop Dose Admin Acetaminophen 650 mg 03/11/21 20:13 Acetaminophen 325 Mg Tab PO Q4H PRN Pain MILD(1-3)/Fever >100.5/OLSEN Dexamethasone 8 mg 03/12/21 18:00 Dexamethasone 4 Mg/Ml Vial IV Q24H MARIA DOLORES Dextrose 0 ml 03/11/21 16:48 Dextrose 10% *Hypoglycemia IV PRN PRN Hypoglycemia Enoxaparin Sodium 30 mg 03/11/21 21:00 03/11/21 22:18 Enoxaparin 30 Mg/0.3 Ml Inj SUB-Q 30 mg QDAY@2200 MARIA DOLORES Administration Azithromycin 500 mg in 250 mls @ 250 mls/hr 03/12/21 18:00 Zithromax/Ns IV Q24H MARIA DOLORES Ceftriaxone Sodium 2 gm in 100 mls @ 200 mls/hr 03/12/21 18:00 Rocephin/Ns 2 Gm/100 Ml IV Q24H MARIA DOLORES Protocol Dopamine HCl 800 mg/ Dextrose 250 mls @ 3.232 mls/hr 03/11/21 22:00 03/12/21 06:41 IV 4 mcg/kg/min DIRECT MARIA DOLORES 6.464 mls/hr Titration Protocol 2 MCG/KG/MIN Dextrose/Sodium Chloride 1,000 mls @ 100 mls/hr 03/11/21 23:00 03/11/21 22:40 D5/0.45ns IV 100 mls/hr DIRECT MARIA DOLORES Administration Metoclopramide HCl 5 mg 03/11/21 20:28 Metoclopramide 10 Mg/2 Ml Inj IV Q6H PRN Nausea And Vomiting Ondansetron HCl 4 mg 03/11/21 20:13 Ondansetron 4 Mg/2 Ml Inj IV Q8H PRN Nausea And Vomiting Oxycodone/Acetaminophen 1 tab 03/11/21 20:16 Oxycodone /Acetaminophen 5-325mg Tab PO Q6H PRN Pain, Moderate (4-6) Sodium Chloride 10 ml 03/11/21 22:00 03/11/21 22:18 Sodium Chloride 0.9% 10 Ml Flush Syringe IV 10 ml BID MARIA DOLORES Administration Sodium Chloride 10 ml 03/11/21 20:13 Sodium Chloride 0.9% 10 Ml Flush Syringe IV PRN PRN LINE FLUSH
--- NOTE | 2021-03-12 11:02 | Consultation ---
History of Present Illness - Reason for Consult Consult date: 03/12/21 hypotension Requesting physician: CRISTOFER DELANEY - History of Present Illness 85 y/o male admitted with hypotension and respiratory distress. Past History Past Medical History: No medical history, other (prior COVID) Past Surgical History: No surgical history Social history: no significant social history Medications and Allergies Allergies Allergy/AdvReac Type Severity Reaction Status Date / Time No Known Allergies Allergy Unverified 03/11/21 15:05 Home Medications Medication Instructions Recorded Confirmed Last Taken Type No Known Home Medications [No 03/12/21 03/12/21 Unknown History Reported Home Medications] Active Meds: Active Medications Acetaminophen (Acetaminophen 325 Mg Tab) 650 mg PO Q4H PRN PRN Reason: Pain MILD(1-3)/Fever >100.5/OLSEN Dexamethasone (Dexamethasone 4 Mg/Ml Vial) 8 mg IV Q24H MARIA DOLORES Dextrose (Dextrose 10% *Hypoglycemia) 0 ml IV PRN PRN PRN Reason: Hypoglycemia Enoxaparin Sodium (Enoxaparin 30 Mg/0.3 Ml Inj) 30 mg SUB-Q QDAY@2200 MARIA DOLORES Last Admin: 03/11/21 22:18 Dose: 30 mg Azithromycin (Zithromax/Ns) 500 mg in 250 mls @ 250 mls/hr IV Q24H MARIA DOLORES Ceftriaxone Sodium (Rocephin/Ns 2 Gm/100 Ml) 2 gm in 100 mls @ 200 mls/hr IV Q24H MARIA DOLORES; Protocol Dopamine HCl 800 mg/ Dextrose 250 mls @ 3.232 mls/hr IV DIRECT MARIA DOLORES; Protocol Last Titration: 03/12/21 06:41 Dose: 4 mcg/kg/min, 6.464 mls/hr Dextrose/Sodium Chloride (D5/0.45ns) 1,000 mls @ 100 mls/hr IV DIRECT MARIA DOLORES Last Admin: 03/11/21 22:40 Dose: 100 mls/hr Metoclopramide HCl (Metoclopramide 10 Mg/2 Ml Inj) 5 mg IV Q6H PRN PRN Reason: Nausea And Vomiting Ondansetron HCl (Ondansetron 4 Mg/2 Ml Inj) 4 mg IV Q8H PRN PRN Reason: Nausea And Vomiting Oxycodone/Acetaminophen (Oxycodone /Acetaminophen 5-325mg Tab) 1 tab PO Q6H PRN PRN Reason: Pain, Moderate (4-6) Sodium Chloride (Sodium Chloride 0.9% 10 Ml Flush Syringe) 10 ml IV BID MARIA DOLORES Last Admin: 03/11/21 22:18 Dose: 10 ml Sodium Chloride (Sodium Chloride 0.9% 10 Ml Flush Syringe) 10 ml IV PRN PRN PRN Reason: LINE FLUSH Review of Systems All systems: negative Exam - Constitutional Vitals: Temp Pulse Resp BP Pulse Ox 98.1 F 110 H 15 101/68 97 03/11/21 15:12 03/12/21 06:31 03/12/21 06:31 03/12/21 06:31 03/12/21 06:31 Results - Labs CBC & Chem 7: 03/13/21 07:34 03/13/21 07:34 Labs: Abnormal lab results 03/11/21 03/11/21 03/11/21 Range/Units 15:29 15:29 15:35 WBC 12.7 H (4.5-11.0) K/mm3 Hgb (11.8-15.2) gm/dl Hct (35.5-45.6) % Plt Count 97 L (140-440) K/mm3 Lymph % (Auto) 5.1 L (13.4-35.0) % Lymph # (Auto) 0.6 L (1.2-5.4) K/mm3 Seg Neutrophils % 89.8 H (40.0-70.0) % Seg Neuts % (Manual) (40.0-70.0) % Lymphocytes % (Manual) (13.4-35.0) % Seg Neutrophils # 11.4 H (1.8-7.7) K/mm3 Lymphocytes # (Manual) (1.2-5.4) K/mm3 ABG pO2 62.9 L (80.0-90.0) mm Hg ABG HCO3 19.8 L (20.0-26.0) mmol/L ABG O2 Saturation 92.7 L (95.0-99.0) % ABG Base Excess -4.5 L (-2.0-3.0) mmol/L ABG Hemoglobin 11.7 L (14.0-18.0) gm/dl Oxyhemoglobin 91.0 L (95.0-99.0) % Potassium 5.4 H (3.6-5.0) mmol/L Chloride 111.6 H (98-107) mmol/L Carbon Dioxide 17 L (22-30) mmol/L BUN 77 H (9-20) mg/dL Creatinine 1.9 H (0.8-1.3) mg/dL Glucose 64 L (75-100) mg/dL POC Glucose (70-105) mg/dL Troponin T 0.041 H (0.00-0.029) ng/mL Total Protein 6.1 L (6.3-8.2) g/dL Albumin 2.8 L (3.9-5) g/dL HDL Cholesterol 37 L (40-59) mg/dL 03/11/21 03/11/21 03/11/21 Range/Units 16:41 17:10 17:46 WBC (4.5-11.0) K/mm3 Hgb (11.8-15.2) gm/dl Hct (35.5-45.6) % Plt Count (140-440) K/mm3 Lymph % (Auto) (13.4-35.0) % Lymph # (Auto) (1.2-5.4) K/mm3 Seg Neutrophils % (40.0-70.0) % Seg Neuts % (Manual) (40.0-70.0) % Lymphocytes % (Manual) (13.4-35.0) % Seg Neutrophils # (1.8-7.7) K/mm3 Lymphocytes # (Manual) (1.2-5.4) K/mm3 ABG pO2 (80.0-90.0) mm Hg ABG HCO3 (20.0-26.0) mmol/L ABG O2 Saturation (95.0-99.0) % ABG Base Excess (-2.0-3.0) mmol/L ABG Hemoglobin (14.0-18.0) gm/dl Oxyhemoglobin (95.0-99.0) % Potassium (3.6-5.0) mmol/L Chloride (98-107) mmol/L Carbon Dioxide (22-30) mmol/L BUN (9-20) mg/dL Creatinine (0.8-1.3) mg/dL Glucose (75-100) mg/dL POC Glucose 30 L 30 L 195 H (70-105) mg/dL Troponin T (0.00-0.029) ng/mL Total Protein (6.3-8.2) g/dL Albumin (3.9-5) g/dL HDL Cholesterol (40-59) mg/dL 03/11/21 03/11/21 03/11/21 Range/Units 21:07 22:24 22:26 WBC (4.5-11.0) K/mm3 Hgb (11.8-15.2) gm/dl Hct (35.5-45.6) % Plt Count (140-440) K/mm3 Lymph % (Auto) (13.4-35.0) % Lymph # (Auto) (1.2-5.4) K/mm3 Seg Neutrophils % (40.0-70.0) % Seg Neuts % (Manual) (40.0-70.0) % Lymphocytes % (Manual) (13.4-35.0) % Seg Neutrophils # (1.8-7.7) K/mm3 Lymphocytes # (Manual) (1.2-5.4) K/mm3 ABG pO2 (80.0-90.0) mm Hg ABG HCO3 (20.0-26.0) mmol/L ABG O2 Saturation (95.0-99.0) % ABG Base Excess (-2.0-3.0) mmol/L ABG Hemoglobin (14.0-18.0) gm/dl Oxyhemoglobin (95.0-99.0) % Potassium (3.6-5.0) mmol/L Chloride (98-107) mmol/L Carbon Dioxide (22-30) mmol/L BUN (9-20) mg/dL Creatinine (0.8-1.3) mg/dL Glucose (75-100) mg/dL POC Glucose 37 L 33 L (70-105) mg/dL Troponin T 0.036 H D (0.00-0.029) ng/mL Total Protein (6.3-8.2) g/dL Albumin (3.9-5) g/dL HDL Cholesterol (40-59) mg/dL 03/11/21 03/11/21 03/12/21 Range/Units 22:50 23:51 01:26 WBC (4.5-11.0) K/mm3 Hgb (11.8-15.2) gm/dl Hct (35.5-45.6) % Plt Count (140-440) K/mm3 Lymph % (Auto) (13.4-35.0) % Lymph # (Auto) (1.2-5.4) K/mm3 Seg Neutrophils % (40.0-70.0) % Seg Neuts % (Manual) (40.0-70.0) % Lymphocytes % (Manual) (13.4-35.0) % Seg Neutrophils # (1.8-7.7) K/mm3 Lymphocytes # (Manual) (1.2-5.4) K/mm3 ABG pO2 (80.0-90.0) mm Hg ABG HCO3 (20.0-26.0) mmol/L ABG O2 Saturation (95.0-99.0) % ABG Base Excess (-2.0-3.0) mmol/L ABG Hemoglobin (14.0-18.0) gm/dl Oxyhemoglobin (95.0-99.0) % Potassium (3.6-5.0) mmol/L Chloride (98-107) mmol/L Carbon Dioxide (22-30) mmol/L BUN (9-20) mg/dL Creatinine (0.8-1.3) mg/dL Glucose (75-100) mg/dL POC Glucose 138 H 120 H 119 H (70-105) mg/dL Troponin T (0.00-0.029) ng/mL Total Protein (6.3-8.2) g/dL Albumin (3.9-5) g/dL HDL Cholesterol (40-59) mg/dL 03/12/21 03/12/21 03/12/21 Range/Units 04:31 04:31 04:33 WBC (4.5-11.0) K/mm3 Hgb 11.2 L (11.8-15.2) gm/dl Hct 35.1 L (35.5-45.6) % Plt Count 79 L (140-440) K/mm3 Lymph % (Auto) (13.4-35.0) % Lymph # (Auto) (1.2-5.4) K/mm3 Seg Neutrophils % (40.0-70.0) % Seg Neuts % (Manual) 95.0 H (40.0-70.0) % Lymphocytes % (Manual) 1.0 L (13.4-35.0) % Seg Neutrophils # (1.8-7.7) K/mm3 Lymphocytes # (Manual) 0.1 L (1.2-5.4) K/mm3 ABG pO2 (80.0-90.0) mm Hg ABG HCO3 (20.0-26.0) mmol/L ABG O2 Saturation (95.0-99.0) % ABG Base Excess (-2.0-3.0) mmol/L ABG Hemoglobin (14.0-18.0) gm/dl Oxyhemoglobin (95.0-99.0) % Potassium (3.6-5.0) mmol/L Chloride 113.2 H (98-107) mmol/L Carbon Dioxide 19 L (22-30) mmol/L BUN 70 H (9-20) mg/dL Creatinine 1.7 H (0.8-1.3) mg/dL Glucose 178 H (75-100) mg/dL POC Glucose 142 H (70-105) mg/dL Troponin T (0.00-0.029) ng/mL Total Protein 4.7 L D (6.3-8.2) g/dL Albumin 2.7 L (3.9-5) g/dL HDL Cholesterol (40-59) mg/dL 03/12/21 Range/Units 08:06 WBC (4.5-11.0) K/mm3 Hgb (11.8-15.2) gm/dl Hct (35.5-45.6) % Plt Count (140-440) K/mm3 Lymph % (Auto) (13.4-35.0) % Lymph # (Auto) (1.2-5.4) K/mm3 Seg Neutrophils % (40.0-70.0) % Seg Neuts % (Manual) (40.0-70.0) % Lymphocytes % (Manual) (13.4-35.0) % Seg Neutrophils # (1.8-7.7) K/mm3 Lymphocytes # (Manual) (1.2-5.4) K/mm3 ABG pO2 (80.0-90.0) mm Hg ABG HCO3 (20.0-26.0) mmol/L ABG O2 Saturation (95.0-99.0) % ABG Base Excess (-2.0-3.0) mmol/L ABG Hemoglobin (14.0-18.0) gm/dl Oxyhemoglobin (95.0-99.0) % Potassium (3.6-5.0) mmol/L Chloride (98-107) mmol/L Carbon Dioxide (22-30) mmol/L BUN (9-20) mg/dL Creatinine (0.8-1.3) mg/dL Glucose (75-100) mg/dL POC Glucose 167 H (70-105) mg/dL Troponin T (0.00-0.029) ng/mL Total Protein (6.3-8.2) g/dL Albumin (3.9-5) g/dL HDL Cholesterol (40-59) mg/dL - Imaging and Cardiology Chest x-ray: image reviewed Assessment and Plan 85 y/o male with acute respiratory failure and hypotension, concern for septic shock 1. Wean vasopressor to off 2. Wean FIo2 as tolerated for sats >88% 3. Agree with repeat COVID and broad speck abx along with steroids 4. Guarded prognosis. CCT 31 minutes.
--- NOTE | 2021-03-12 11:43 | Electrocardiograph Report ---
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
[2021-03-12] MEDS: dexAMETHasone 4 MG/ML VIAL IV SCH (17:49)
[2021-03-12] MEDS: cefTRIAXone/NS 2 GM/100 ML 2 GM/100 ML BAG IV SCH (17:50)
[2021-03-12] MEDS: AZITHROMYCIN/NS 500 MG/250 ML 500 MG/250 ML BAG IV SCH (17:50)
[2021-03-12] MEDS: D5W/0.45% NACL 1,000 ML IV SCH (18:41)
[2021-03-12] MEDS: ENOXAPARIN 30 MG/0.3 ML INJ SUB-Q SCH (22:22)
[2021-03-13] MEDS: D5W/0.45% NACL 1,000 ML IV SCH ×2 (05:00→16:14)
[2021-03-13 08:18] LABS: Hematocrit 30.8 % (35.5-45.6); Hemoglobin 10.1 gm/dl (11.8-15.2); Mean Corpuscular HGB Conc 33 % (32-34); Mean Corpuscular Volume 89 fl (84-94); Red Blood Count 3.46 M/mm3 (3.65-5.03); Red Cell Distribution Width 14.4 % (13.2-15.2)
[2021-03-13 08:19] LABS: Albumin 2.5 g/dL (3.9-5)
[2021-03-13 08:25] LABS: Platelet Count 78 K/mm3 (140-440)
[2021-03-13 09:54] LABS: Eosinophils % (Auto) 0.6 % (0.0-4.3); Monocytes # (Auto) 0.4 K/mm3 (0.0-0.8); Monocytes % (Auto) 5.6 % (0.0-7.3)
[2021-03-13 10:07] LABS: Platelet Clumps Few; Platelet Estimate Consistent w Auto; Schistocytes Rare; Total Cells Counted 100
--- NOTE | 2021-03-13 14:51 | Progress Note ---
<JANELLENAJMA JamesAdilson - Last Filed: 03/13/21 14:53> Assessment and Plan Assessment and plan: # Acute respiratory failure with hypoxia -Secondary to bilateral pneumonia -RT pcr pending -Supplemental oxygenation as needed -CCM consulted #Septic Shock POA (resolving) - s/p dopamine drip - was rehab [facility]. - maintain map > 65 - Bcx, Ucx, Scx pending - Rocephin IV and Zithromax IV. - CCM consulted. - ID consulted, appreciate recommendations #Acute metabolic encephalopathy (improving) - patient was apparenty functional prior to hospitalization on jan 31 at [facility]. lives with , able to get groceries, etc. - confused on my encounter but appears to be improving from admission based on RN report. - likely due to underlying sepsis. 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 - SSI, accucheck ACHS - Avoid hypoglycemia # Dementia Supportive care # Hyperkalemia (resolved) Calcium gluconate and Kayexalate given # DVT prophylaxis - On anticoagulation GI prophylaxis # Moderate Malnutrition -Dietary supplementation The high probability of a clinically significant, sudden or life threatening deterioration of the [multi] system(s) required my full and direct attention, intervention and personal management. The aggregate critical care time was [60] minutes. This time is in addition to time spent performing reported procedures but includes the following: [x] Data Review and interpretation [x] Patient assessment and monitoring of vital signs [x] Documentation [x] Medication orders and management Disposition Plan: icu Total Time Spent with Patient (Minutes): 60 History Interval history: This 85-year-old male with HTN, DM, dementia with recent COVID-19 pneumonia was a resident of a fpc resented with severe respiratory distress via EMS. Patient was found to have a SPO2 in the 80s and placed on nonrebreather with improvement in oxygenation, blood glucose was found to be 78. Patient continued to have shortness of breath in the emergency department and became hypotensive. Patient was started on dopamine and admitted to the hospital service with consults to ID and CCM. Hospital Course: 03/12/2021: Continue to wean O2 as tolerated. Advised RN to wean off dopamine gtt. If pressors support is needed, would recommend levophed instead however will defer to CCM. Called patient daughter Chika Harris for update. Per daughter, patient was covid positive jan 31 and admitted at [facility]. He was subsequ ently discharged to [facility]. She states that he had a prolonged stay at rehab facility because he was positive again on Mar 02. Yesterday because of his oxygen saturation drop, it prompted patient to be admitted to our facility. After discussing the details of her father's clinical picture, she voiced that she would like patient to remain full code. 03/13: Hospitalist Physical - Constitutional Vitals: Temp Pulse Resp BP Pulse Ox 97.0 F L 82 17 117/68 98 03/13/21 08:00 03/13/21 14:00 03/13/21 14:00 03/13/21 14:00 03/13/21 14:00 General appearance: Present: severe distress, well-nourished HEART Score - HEART Score Troponin: Troponin T 0.036 ng/mL (0.00-0.029) H D 03/11/21 21:07 Results - Labs CBC & Chem 7: 03/13/21 07:34 03/13/21 07:34 Labs: Laboratory Last Values WBC 7.2 K/mm3 (4.5-11.0) 03/13/21 07:34 RBC 3.46 M/mm3 (3.65-5.03) L 03/13/21 07:34 Hgb 10.1 gm/dl (11.8-15.2) L 03/13/21 07:34 Hct 30.8 % (35.5-45.6) L 03/13/21 07:34 MCV 89 fl (84-94) 03/13/21 07:34 MCH 29 pg (28-32) 03/13/21 07:34 MCHC 33 % (32-34) 03/13/21 07:34 RDW 14.4 % (13.2-15.2) 03/13/21 07:34 Plt Count 78 K/mm3 (140-440) L 03/13/21 07:34 Lymph % (Auto) 5.1 % (13.4-35.0) L 03/11/21 15:29 [place] % (Auto) 5.6 % (0.0-7.3) 03/13/21 07:34 Eos % (Auto) 0.6 % (0.0-4.3) 03/13/21 07:34 Baso % (Auto) 0.1 % (0.0-1.8) 03/11/21 15:29 Lymph # (Auto) 0.6 K/mm3 (1.2-5.4) L 03/11/21 15:29 [place] # (Auto) 0.4 K/mm3 (0.0-0.8) 03/13/21 07:34 Eos # (Auto) 0.0 K/mm3 (0.0-0.4) 03/13/21 07:34 Baso # (Auto) 0.0 K/mm3 (0.0-0.1) 03/13/21 07:34 Add Manual Diff Complete 03/13/21 07:34 Total Counted 100 03/13/21 07:34 Seg Neutrophils % 86.2 % (40.0-70.0) H 03/13/21 07:34 Seg Neuts % (Manual) 86.0 % (40.0-70.0) H 03/13/21 07:34 Band Neutrophils % 0 % 03/13/21 07:34 Lymphocytes % (Manual) 8.0 % (13.4-35.0) L 03/13/21 07:34 Reactive Lymphs % (Man) 0 % 03/13/21 07:34 Monocytes % (Manual) 6.0 % (0.0-7.3) 03/13/21 07:34 Eosinophils % (Manual) 1.0 % (0.0-4.3) 03/12/21 04:31 Basophils % (Manual) 0 % (0.0-1.8) 03/12/21 04:31 Metamyelocytes % 0 % 03/13/21 07:34 Myelocytes % 0 % 03/13/21 07:34 Promyelocytes % 0 % 03/13/21 07:34 Blast Cells % 0 % 03/13/21 07:34 Nucleated RBC % Not Reportable 03/13/21 07:34 Seg Neutrophils # 6.4 K/mm3 (1.8-7.7) 03/13/21 07:34 Seg Neutrophils # Man 6.2 K/mm3 (1.8-7.7) 03/13/21 07:34 Band Neutrophils # 0.0 K/mm3 03/13/21 07:34 Lymphocytes # (Manual) 0.6 K/mm3 (1.2-5.4) L 03/13/21 07:34 Abs React Lymphs (Man) 0.0 K/mm3 03/13/21 07:34 Monocytes # (Manual) 0.4 K/mm3 (0.0-0.8) 03/13/21 07:34 Eosinophils # (Manual) 0.0 K/mm3 (0.0-0.4) 03/13/21 07:34 Basophils # (Manual) 0.0 K/mm3 (0.0-0.1) 03/13/21 07:34 Metamyelocytes # 0.0 K/mm3 03/13/21 07:34 Myelocytes # 0.0 K/mm3 03/13/21 07:34 Promyelocytes # 0.0 K/mm3 03/13/21 07:34 Blast Cells # 0.0 K/mm3 03/13/21 07:34 WBC Morphology Not Reportable 03/13/21 07:34 Hypersegmented Neuts Not Reportable 03/13/21 07:34 Hyposegmented Neuts Not Reportable 03/13/21 07:34 Hypogranular Neuts Not Reportable 03/13/21 07:34 Smudge Cells Not Reportable 03/13/21 07:34 Toxic Granulation Not Reportable 03/13/21 07:34 Toxic Vacuolation Not Reportable 03/13/21 07:34 Dohle Bodies Not Reportable 03/13/21 07:34 Pelger-Huet Anomaly Not Reportable 03/13/21 07:34 Nicole Rods Not Reportable 03/13/21 07:34 Platelet Estimate Consistent w auto 03/13/21 07:34 Clumped Platelets Few 03/13/21 07:34 Plt Clumps, EDTA Not Reportable 03/13/21 07:34 Large Platelets Not Reportable 03/13/21 07:34 Giant Platelets Not Reportable 03/13/21 07:34 Platelet Satelliting Not Reportable 03/13/21 07:34 Plt Morphology Comment Not Reportable 03/13/21 07:34 RBC Morphology Not Reportable 03/13/21 07:34 Dimorphic RBCs Not Reportable 03/13/21 07:34 Polychromasia Not Reportable 03/13/21 07:34 Hypochromasia Not Reportable 03/13/21 07:34 Poikilocytosis Not Reportable 03/13/21 07:34 Anisocytosis Not Reportable 03/13/21 07:34 Microcytosis Not Reportable 03/13/21 07:34 Macrocytosis Not Reportable 03/13/21 07:34 Spherocytes Not Reportable 03/13/21 07:34 Pappenheimer Bodies Not Reportable 03/13/21 07:34 Sickle Cells Not Reportable 03/13/21 07:34 Target Cells Not Reportable 03/13/21 07:34 Tear Drop Cells Not Reportable 03/13/21 07:34 Ovalocytes Not Reportable 03/13/21 07:34 Helmet Cells Not Reportable 03/13/21 07:34 [place] Bodies Not Reportable 03/13/21 07:34 [place] Rings Not Reportable 03/13/21 07:34 [place] Cells Not Reportable 03/13/21 07:34 Bite Cells Not Reportable 03/13/21 07:34 Crenated Cell Not Reportable 03/13/21 07:34 Elliptocytes Few 03/13/21 07:34 Acanthocytes (Spur) Not Reportable 03/13/21 07:34 Rouleaux Not Reportable 03/13/21 07:34 Hemoglobin C Crystals Not Reportable 03/13/21 07:34 Schistocytes Rare 03/13/21 07:34 Malaria parasites Not Reportable 03/13/21 07:34 Hernando Bodies Not Reportable 03/13/21 07:34 Hem Pathologist Commnt No 03/13/21 07:34 PT 13.9 Sec. (12.2-14.9) 03/11/21 15:29 INR 0.96 (0.87-1.13) 03/11/21 15:29 APTT 26.8 Sec. (24.2-36.6) 03/11/21 15:29 ABG pH 7.385 pH Units (7.350-7.450) 03/11/21 15:35 ABG pCO2 34.0 mm Hg 03/11/21 15:35 ABG pO2 62.9 mm Hg (80.0-90.0) L 03/11/21 15:35 ABG HCO3 19.8 mmol/L (20.0-26.0) L 03/11/21 15:35 ABG O2 Saturation 92.7 % (95.0-99.0) L 03/11/21 15:35 ABG O2 Content 14.9 (0.0-44) 03/11/21 15:35 ABG Base Excess -4.5 mmol/L (-2.0-3.0) L 03/11/21 15:35 ABG Hemoglobin 11.7 gm/dl (14.0-18.0) L 03/11/21 15:35 ABG Carboxyhemoglobin 1.3 % (0.0-5.0) 03/11/21 15:35 ABG Methemoglobin 0.5 % (0.0-1.5) 03/11/21 15:35 Oxyhemoglobin 91.0 % (95.0-99.0) L 03/11/21 15:35 FiO2 35 % 03/11/21 15:35 Sodium 149 mmol/L (137-145) H D 03/13/21 07:34 Potassium 4.3 mmol/L (3.6-5.0) 03/13/21 07:34 Chloride 118.8 mmol/L (98-107) H 03/13/21 07:34 Carbon Dioxide 19 mmol/L (22-30) L 03/13/21 07:34 Anion Gap 16 mmol/L 03/13/21 07:34 BUN 60 mg/dL (9-20) H 03/13/21 07:34 Creatinine 1.4 mg/dL (0.8-1.3) H 03/13/21 07:34 Estimated GFR 58 ml/min 03/13/21 07:34 BUN/Creatinine Ratio 43 % 03/13/21 07:34 Glucose 192 mg/dL (75-100) H 03/13/21 07:34 POC Glucose 166 mg/dL (70-105) H 03/13/21 11:04 Lactic Acid 1.20 mmol/L (0.7-2.0) 03/12/21 04:31 Calcium 9.0 mg/dL (8.4-10.2) 03/13/21 07:34 Total Bilirubin 0.40 mg/dL (0.1-1.2) 03/13/21 07:34 AST 15 units/L (5-40) 03/13/21 07:34 ALT 20 units/L (7-56) 03/13/21 07:34 Alkaline Phosphatase 78 units/L (35-129) 03/13/21 07:34 Total Creatine Kinase 107 units/L (55-170) 03/11/21 15:29 CK-MB (CK-2) 3.4 ng/mL (0.0-4.0) 03/11/21 15:29 CK-MB (CK-2) Rel Index 3.1 (0-4) 03/11/21 15:29 Troponin T 0.036 ng/mL (0.00-0.029) H D 03/11/21 21:07 NT-Pro-B Natriuret Pep 143.1 pg/mL (0-900) 03/11/21 15:29 Total Protein 5.2 g/dL (6.3-8.2) L 03/13/21 07:34 Albumin 2.5 g/dL (3.9-5) L 03/13/21 07:34 Albumin/Globulin Ratio 0.9 % 03/13/21 07:34 Triglycerides 141 mg/dL (2-149) 03/11/21 15:29 Cholesterol 129 mg/dL (50-199) 03/11/21 15:29 LDL Cholesterol Direct 65 mg/dL (50-130) 03/11/21 15:29 HDL Cholesterol 37 mg/dL (40-59) L 03/11/21 15:29 Cholesterol/HDL Ratio 3.48 % 03/11/21 15:29 Microbiology: Microbiology 03/11/21 16:46 Peripheral/Venous Blood Culture - Preliminary NO GROWTH AFTER 24 HOURS 03/11/21 16:39 Peripheral/Venous Blood Culture - Preliminary NO GROWTH AFTER 24 HOURS Christy/IV: Voiding Method Indwelling Catheter Active Medications - Current Medications Current Medications: Generic Name Dose Route Start Last Admin Trade Name Freq PRN Reason Stop Dose Admin Acetaminophen 650 mg 03/11/21 20:13 Acetaminophen 325 Mg Tab PO Q4H PRN Pain MILD(1-3)/Fever >100.5/OLSEN Dexamethasone 8 mg 03/12/21 18:00 03/12/21 17:49 Dexamethasone 4 Mg/Ml Vial IV 8 mg Q24H MARIA DOLORES Administration Dextrose 0 ml 03/11/21 16:48 Dextrose 10% *Hypoglycemia IV PRN PRN Hypoglycemia Heparin Sodium (Porcine) 5,000 unit 03/13/21 22:00 Heparin 5,000 Unit/1 Ml Vial SUB-Q Q12HR MARIA DOLORES Azithromycin 500 mg in 250 mls @ 250 mls/hr 03/12/21 18:00 03/12/21 17:50 Zithromax/Ns IV 250 mls/hr Q24H MARIA DOLORES Administration Ceftriaxone Sodium 2 gm in 100 mls @ 200 mls/hr 03/12/21 18:00 03/12/21 17:50 Rocephin/Ns 2 Gm/100 Ml IV 200 mls/hr Q24H MARIA DOLORES Administration Protocol Dopamine HCl 800 mg/ Dextrose 250 mls @ 3.232 mls/hr 03/11/21 22:00 03/12/21 18:53 IV 0 mcg/kg/min DIRECT MARIA DOLORES 0 mls/hr Titration Protocol 2 MCG/KG/MIN Dextrose/Sodium Chloride 1,000 mls @ 100 mls/hr 03/11/21 23:00 03/13/21 05:00 D5/0.45ns IV 100 mls/hr DIRECT MARIA DOLORES Administration Metoclopramide HCl 5 mg 03/11/21 20:28 Metoclopramide 10 Mg/2 Ml Inj IV Q6H PRN Nausea And Vomiting Ondansetron HCl 4 mg 03/11/21 20:13 Ondansetron 4 Mg/2 Ml Inj IV Q8H PRN Nausea And Vomiting Oxycodone/Acetaminophen 1 tab 03/11/21 20:16 Oxycodone /Acetaminophen 5-325mg Tab PO Q6H PRN Pain, Moderate (4-6) Sodium Chloride 10 ml 03/11/21 22:00 03/13/21 09:28 Sodium Chloride 0.9% 10 Ml Flush Syringe IV 10 ml BID MARIA DOLORES Administration Sodium Chloride 10 ml 03/11/21 20:13 Sodium Chloride 0.9% 10 Ml Flush Syringe IV PRN PRN LINE FLUSH <CRISTOFER DELANEY - Last Filed: 03/14/21 08:06> Assessment and Plan Assessment and plan: I saw and evaluated the patient. Discussed with the nurse practitioner and agree with their findings and plan as documented in this note except: 03/13: Patient downgraded to floor. anticipate d/c tomorrow Hospitalist Physical - Constitutional Vitals: Temp Pulse Resp BP Pulse Ox 98.4 F 87 17 108/67 100 03/13/21 19:27 03/13/21 22:00 03/13/21 22:00 03/13/21 22:00 03/13/21 22:00 HEART Score - HEART Score Troponin: Troponin T 0.036 ng/mL (0.00-0.029) H D 03/11/21 21:07 Results - Labs CBC & Chem 7: 03/13/21 07:34 03/13/21 07:34 Labs: Laboratory Last Values WBC 7.2 K/mm3 (4.5-11.0) 03/13/21 07:34 RBC 3.46 M/mm3 (3.65-5.03) L 03/13/21 07:34 Hgb 10.1 gm/dl (11.8-15.2) L 03/13/21 07:34 Hct 30.8 % (35.5-45.6) L 03/13/21 07:34 MCV 89 fl (84-94) 03/13/21 07:34 MCH 29 pg (28-32) 03/13/21 07:34 MCHC 33 % (32-34) 03/13/21 07:34 RDW 14.4 % (13.2-15.2) 03/13/21 07:34 Plt Count 78 K/mm3 (140-440) L 03/13/21 07:34 Lymph % (Auto) 5.1 % (13.4-35.0) L 03/11/21 15:29 [place] % (Auto) 5.6 % (0.0-7.3) 03/13/21 07:34 Eos % (Auto) 0.6 % (0.0-4.3) 03/13/21 07:34 Baso % (Auto) 0.1 % (0.0-1.8) 03/11/21 15:29 Lymph # (Auto) 0.6 K/mm3 (1.2-5.4) L 03/11/21 15:29 [place] # (Auto) 0.4 K/mm3 (0.0-0.8) 03/13/21 07:34 Eos # (Auto) 0.0 K/mm3 (0.0-0.4) 03/13/21 07:34 Baso # (Auto) 0.0 K/mm3 (0.0-0.1) 03/13/21 07:34 Add Manual Diff Complete 03/13/21 07:34 Total Counted 100 03/13/21 07:34 Seg Neutrophils % 86.2 % (40.0-70.0) H 03/13/21 07:34 Seg Neuts % (Manual) 86.0 % (40.0-70.0) H 03/13/21 07:34 Band Neutrophils % 0 % 03/13/21 07:34 Lymphocytes % (Manual) 8.0 % (13.4-35.0) L 03/13/21 07:34 Reactive Lymphs % (Man) 0 % 03/13/21 07:34 Monocytes % (Manual) 6.0 % (0.0-7.3) 03/13/21 07:34 Eosinophils % (Manual) 1.0 % (0.0-4.3) 03/12/21 04:31 Basophils % (Manual) 0 % (0.0-1.8) 03/12/21 04:31 Metamyelocytes % 0 % 03/13/21 07:34 Myelocytes % 0 % 03/13/21 07:34 Promyelocytes % 0 % 03/13/21 07:34 Blast Cells % 0 % 03/13/21 07:34 Nucleated RBC % Not Reportable 03/13/21 07:34 Seg Neutrophils # 6.4 K/mm3 (1.8-7.7) 03/13/21 07:34 Seg Neutrophils # Man 6.2 K/mm3 (1.8-7.7) 03/13/21 07:34 Band Neutrophils # 0.0 K/mm3 03/13/21 07:34 Lymphocytes # (Manual) 0.6 K/mm3 (1.2-5.4) L 03/13/21 07:34 Abs React Lymphs (Man) 0.0 K/mm3 03/13/21 07:34 Monocytes # (Manual) 0.4 K/mm3 (0.0-0.8) 03/13/21 07:34 Eosinophils # (Manual) 0.0 K/mm3 (0.0-0.4) 03/13/21 07:34 Basophils # (Manual) 0.0 K/mm3 (0.0-0.1) 03/13/21 07:34 Metamyelocytes # 0.0 K/mm3 03/13/21 07:34 Myelocytes # 0.0 K/mm3 03/13/21 07:34 Promyelocytes # 0.0 K/mm3 03/13/21 07:34 Blast Cells # 0.0 K/mm3 03/13/21 07:34 WBC Morphology Not Reportable 03/13/21 07:34 Hypersegmented Neuts Not Reportable 03/13/21 07:34 Hyposegmented Neuts Not Reportable 03/13/21 07:34 Hypogranular Neuts Not Reportable 03/13/21 07:34 Smudge Cells Not Reportable 03/13/21 07:34 Toxic Granulation Not Reportable 03/13/21 07:34 Toxic Vacuolation Not Reportable 03/13/21 07:34 Dohle Bodies Not Reportable 03/13/21 07:34 Pelger-Huet Anomaly Not Reportable 03/13/21 07:34 Nicole Rods Not Reportable 03/13/21 07:34 Platelet Estimate Consistent w auto 03/13/21 07:34 Clumped Platelets Few 03/13/21 07:34 Plt Clumps, EDTA Not Reportable 03/13/21 07:34 Large Platelets Not Reportable 03/13/21 07:34 Giant Platelets Not Reportable 03/13/21 07:34 Platelet Satelliting Not Reportable 03/13/21 07:34 Plt Morphology Comment Not Reportable 03/13/21 07:34 RBC Morphology Not Reportable 03/13/21 07:34 Dimorphic RBCs Not Reportable 03/13/21 07:34 Polychromasia Not Reportable 03/13/21 07:34 Hypochromasia Not Reportable 03/13/21 07:34 Poikilocytosis Not Reportable 03/13/21 07:34 Anisocytosis Not Reportable 03/13/21 07:34 Microcytosis Not Reportable 03/13/21 07:34 Macrocytosis Not Reportable 03/13/21 07:34 Spherocytes Not Reportable 03/13/21 07:34 Pappenheimer Bodies Not Reportable 03/13/21 07:34 Sickle Cells Not Reportable 03/13/21 07:34 Target Cells Not Reportable 03/13/21 07:34 Tear Drop Cells Not Reportable 03/13/21 07:34 Ovalocytes Not Reportable 03/13/21 07:34 Helmet Cells Not Reportable 03/13/21 07:34 [place] Bodies Not Reportable 03/13/21 07:34 [place] Rings Not Reportable 03/13/21 07:34 [place] Cells Not Reportable 03/13/21 07:34 Bite Cells Not Reportable 03/13/21 07:34 Crenated Cell Not Reportable 03/13/21 07:34 Elliptocytes Few 03/13/21 07:34 Acanthocytes (Spur) Not Reportable 03/13/21 07:34 Rouleaux Not Reportable 03/13/21 07:34 Hemoglobin C Crystals Not Reportable 03/13/21 07:34 Schistocytes Rare 03/13/21 07:34 Malaria parasites Not Reportable 03/13/21 07:34 [place] Bodies Not Reportable 03/13/21 07:34 Hem Pathologist Commnt No 03/13/21 07:34 PT 13.9 Sec. (12.2-14.9) 03/11/21 15:29 INR 0.96 (0.87-1.13) 03/11/21 15:29 APTT 26.8 Sec. (24.2-36.6) 03/11/21 15:29 ABG pH 7.385 pH Units (7.350-7.450) 03/11/21 15:35 ABG pCO2 34.0 mm Hg 03/11/21 15:35 ABG pO2 62.9 mm Hg (80.0-90.0) L 03/11/21 15:35 ABG HCO3 19.8 mmol/L (20.0-26.0) L 03/11/21 15:35 ABG O2 Saturation 92.7 % (95.0-99.0) L 03/11/21 15:35 ABG O2 Content 14.9 (0.0-44) 03/11/21 15:35 ABG Base Excess -4.5 mmol/L (-2.0-3.0) L 03/11/21 15:35 ABG Hemoglobin 11.7 gm/dl (14.0-18.0) L 03/11/21 15:35 ABG Carboxyhemoglobin 1.3 % (0.0-5.0) 03/11/21 15:35 ABG Methemoglobin 0.5 % (0.0-1.5) 03/11/21 15:35 Oxyhemoglobin 91.0 % (95.0-99.0) L 03/11/21 15:35 FiO2 35 % 03/11/21 15:35 Sodium 149 mmol/L (137-145) H D 03/13/21 07:34 Potassium 4.3 mmol/L (3.6-5.0) 03/13/21 07:34 Chloride 118.8 mmol/L (98-107) H 03/13/21 07:34 Carbon Dioxide 19 mmol/L (22-30) L 03/13/21 07:34 Anion Gap 16 mmol/L 03/13/21 07:34 BUN 60 mg/dL (9-20) H 03/13/21 07:34 Creatinine 1.4 mg/dL (0.8-1.3) H 03/13/21 07:34 Estimated GFR 58 ml/min 03/13/21 07:34 BUN/Creatinine Ratio 43 % 03/13/21 07:34 Glucose 192 mg/dL (75-100) H 03/13/21 07:34 POC Glucose 154 mg/dL (70-105) H 03/13/21 16:53 Lactic Acid 1.20 mmol/L (0.7-2.0) 03/12/21 04:31 Calcium 9.0 mg/dL (8.4-10.2) 03/13/21 07:34 Total Bilirubin 0.40 mg/dL (0.1-1.2) 03/13/21 07:34 AST 15 units/L (5-40) 03/13/21 07:34 ALT 20 units/L (7-56) 03/13/21 07:34 Alkaline Phosphatase 78 units/L (35-129) 03/13/21 07:34 Total Creatine Kinase 107 units/L (55-170) 03/11/21 15:29 CK-MB (CK-2) 3.4 ng/mL (0.0-4.0) 03/11/21 15:29 CK-MB (CK-2) Rel Index 3.1 (0-4) 03/11/21 15:29 Troponin T 0.036 ng/mL (0.00-0.029) H D 03/11/21 21:07 NT-Pro-B Natriuret Pep 143.1 pg/mL (0-900) 03/11/21 15:29 Total Protein 5.2 g/dL (6.3-8.2) L 03/13/21 07:34 Albumin 2.5 g/dL (3.9-5) L 03/13/21 07:34 Albumin/Globulin Ratio 0.9 % 03/13/21 07:34 Triglycerides 141 mg/dL (2-149) 03/11/21 15:29 Cholesterol 129 mg/dL (50-199) 03/11/21 15:29 LDL Cholesterol Direct 65 mg/dL (50-130) 03/11/21 15:29 HDL Cholesterol 37 mg/dL (40-59) L 03/11/21 15:29 Cholesterol/HDL Ratio 3.48 % 03/11/21 15:29 Urine Creatinine 87.6 mg/dL (0.1-20.0) H 03/13/21 Unknown Urine Sodium 56 mmol/L 03/13/21 Unknown Urine Urea Nitrogen 1448 03/13/21 Unknown Microbiology: Microbiology 03/11/21 16:46 Peripheral/Venous Blood Culture - Preliminary NO GROWTH AFTER 48 HOURS 03/11/21 16:39 Peripheral/Venous Blood Culture - Preliminary NO GROWTH AFTER 48 HOURS Christy/IV: Voiding Method Indwelling Catheter Active Medications - Current Medications Current Medications: Generic Name Dose Route Start Last Admin Trade Name Freq PRN Reason Stop Dose Admin Acetaminophen 650 mg 03/11/21 20:13 Acetaminophen 325 Mg Tab PO Q4H PRN Pain MILD(1-3)/Fever >100.5/OLSEN Dexamethasone 8 mg 03/12/21 18:00 03/12/21 17:49 Dexamethasone 4 Mg/Ml Vial IV 8 mg Q24H MARIA DOLORES Administration Dextrose 0 ml 03/11/21 16:48 Dextrose 10% *Hypoglycemia IV PRN PRN Hypoglycemia Heparin Sodium (Porcine) 5,000 unit 03/13/21 22:00 03/13/21 22:19 Heparin 5,000 Unit/1 Ml Vial SUB-Q 5,000 unit Q12HR MARIA DOLORES Administration Azithromycin 500 mg in 250 mls @ 250 mls/hr 03/12/21 18:00 03/13/21 18:30 Zithromax/Ns IV 250 mls/hr Q24H MARIA DOLORES Administration Ceftriaxone Sodium 2 gm in 100 mls @ 200 mls/hr 03/12/21 18:00 03/13/21 17:30 Rocephin/Ns 2 Gm/100 Ml IV 200 mls/hr Q24H MARIA DOLORES Administration Protocol Dextrose/Sodium Chloride 1,000 mls @ 100 mls/hr 03/11/21 23:00 03/14/21 03:11 D5/0.45ns IV 100 mls/hr DIRECT MARIA DOLORES Administration Metoclopramide HCl 5 mg 03/11/21 20:28 Metoclopramide 10 Mg/2 Ml Inj IV Q6H PRN Nausea And Vomiting Ondansetron HCl 4 mg 03/11/21 20:13 Ondansetron 4 Mg/2 Ml Inj IV Q8H PRN Nausea And Vomiting Oxycodone/Acetaminophen 1 tab 03/11/21 20:16 Oxycodone /Acetaminophen 5-325mg Tab PO Q6H PRN Pain, Moderate (4-6) Sodium Chloride 10 ml 03/11/21 22:00 03/13/21 22:19 Sodium Chloride 0.9% 10 Ml Flush Syringe IV 10 ml BID MARIA DOLORES Administration Sodium Chloride 10 ml 03/11/21 20:13 Sodium Chloride 0.9% 10 Ml Flush Syringe IV PRN PRN LINE FLUSH
[2021-03-13 17:12] LABS: Creatinine,Urine 87.6 mg/dL (0.1-20.0)
[2021-03-13] MEDS: cefTRIAXone/NS 2 GM/100 ML 2 GM/100 ML BAG IV SCH (17:30)
[2021-03-13] MEDS: AZITHROMYCIN/NS 500 MG/250 ML 500 MG/250 ML BAG IV SCH (18:30)
[2021-03-13] MEDS: HEPARIN 5,000 UNIT/1 ML VIAL SUB-Q SCH (22:19)
[2021-03-14] MEDS: D5W/0.45% NACL 1,000 ML IV SCH (03:11)
--- NOTE | 2021-03-14 08:09 | Discharge Summary ---
Providers - Providers Date of Admission: 03/11/21 18:00 Date of discharge: 03/14/21 Attending physician: CRISTOFER DELANEY MD 03/11/21 20:16 Consult to Physician [CONS] Routine Comment: Consulting Provider: CHANDLER NEIL Physician Instructions: Reason For Exam: Post Covid syndrome 03/11/21 21:20 Consult to Physician [CONS] Routine Comment: Consulting Provider: ESTELLA SANTIAGO Physician Instructions: Reason For Exam: Septic shock Primary care physician: SUSI BROWNING MD Hospitalization Reason for admission: shortness of breath Condition: Stable Hospital course: Interval history: This 85-year-old male with HTN, DM, dementia with recent COVID-19 pneumonia was a resident of a group home resented with severe respiratory distress via EMS. Patient was found to have a SPO2 in the 80s and placed on nonrebreather with improvement in oxygenation, blood glucose was found to be 78. Patient continued to have shortness of breath in the emergency department and became hypotensive. Patient was started on dopamine and admitted to the hospital service with consults to ID and CCM. Hospital Course: 03/12/2021: Continue to wean O2 as tolerated. Advised RN to wean off dopamine gtt. If pressors support is needed, would recommend levophed instead however will defer to CCM. Called patient daughter Chika Harris for update. Per daughter, patient was covid positive jan [address] [facility]. He was subsequently [facility] [place]. She states that he had a prolonged stay at rehab facility because he was positive again on Mar 02. Yesterday because of his oxygen saturation drop, it prompted patient to be admitted to our facility. After discussing the details of her father's clinical picture, she voiced that she would like patient to remain full code. 03/13: VSS, on room air sating 100%. Discharge back home to rehab facility. Rapid covid pending. Will d/c with additional 3 day course of azithromycin. Assessment and Plan: # Acute respiratory failure with hypoxia -Secondary to bilateral pneumonia -RT pcr pending -Supplemental oxygenation as needed -CCM consulted #Septic Shock POA (resolving) - s/p dopamine drip - was rehab [facility]. - maintain map > 65 - Bcx, Ucx, Scx pending - Rocephin IV and Zithromax IV. - CCM consulted. - ID consulted, appreciate recommendations #Acute metabolic encephalopathy (improving) - patient was apparenty functional prior to hospitalization on jan 31 at [facility] [place]. lives with , able to get groceries, etc. - confused on my encounter but appears to be improving from admission based on RN report. - likely due to underlying sepsis. # Bilateral pneumonia - IV antibiotics in the form of Zithromax and Rocephin - Rule out Covid- rt pcr pending # Acute kidney injury likely secondary to vasomotor nephropathy, hypernatremia, hyperchloremia - MIVF with D5 half-normal saline at 100 mL's per hour - Strict intake and output - Daily weights - Avoid nephrotoxic medications - Urine lites pending - Encourage PO free water intake - Consider nephrology consult if not improving - Trend BMP # Person under investigation for COVID-19 - COVID 19 PCR pending - contact/droplet isolation # [id number] syndrome - Patient may still be having active Covid - 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 - SSI, accucheck ACHS - Avoid hypoglycemia # Dementia Supportive care # Hyperkalemia (resolved) Calcium gluconate and Kayexalate given # DVT prophylaxis - On anticoagulation GI prophylaxis # Moderate Malnutrition -Dietary supplementation The high probability of a clinically significant, sudden or life threatening deterioration of the [multi] system(s) required my full and direct attention, intervention and personal management. The aggregate critical care time was [60] minutes. This time is in addition to time spent performing reported procedures but includes the following: [x] Data Review and interpretation [x] Patient assessment and monitoring of vital signs [x] Documentation [x] Medication orders and management Disposition Plan: icu Total Time Spent with Patient (Minutes): 60 Disposition: [facility] Final Discharge Diagnosis (Prints w/discharge instructions): Sepsis, pneumonia Time spent for discharge: 35 Core Measure Documentation - Palliative Care Palliative Care/ Comfort Measures: Not Applicable - Core Measures Any of the following diagnoses?: none Exam - Physical Exam Narrative exam: Physical Exam: VITAL SIGNS: Reviewed. GENERAL: The patient appears normally developed, Vital signs as documented. on nasal cannula HEAD: No signs of head trauma. EYES: Pupils are equal. Extraocular motions intact. EARS: Hearing grossly intact. MOUTH: Oropharynx is normal. NECK: No adenopathy, no JVD. CHEST: Bl rhonchi CARDIAC: Regular rate and rhythm. S1 and S2, without murmurs, gallops, or rubs. VASCULAR: No Edema. Peripheral pulses normal and equal in all extremities. ABDOMEN: Soft, non tender and non distended. No rebound or guarding, and no masses palpated. Bowel Sounds normal. MUSCULOSKELETAL: Good range of motion of all major joints. Extremities without clubbing, cyanosis or edema. NEUROLOGIC EXAM: Alert and oriented x 1. no focal sensory or strength deficits. PSYCHIATRIC: Mood normal. SKIN: detail exam as documented in skin assessment - Constitutional Vitals: Temp Pulse Resp BP Pulse Ox 98.4 F 87 17 108/67 100 03/13/21 19:27 03/13/21 22:00 03/13/21 22:00 03/13/21 22:00 03/13/21 22:00 Plan Follow up with: SUSI BROWNING MD [Primary Care Provider] - 3-5 Days
[2021-03-14] MEDS: HEPARIN 5,000 UNIT/1 ML VIAL SUB-Q SCH ×2 (10:14→22:52)
--- NOTE | 2021-03-14 12:12 | Progress Note ---
Assessment and Plan 85 y/o male with acute respiratory failure and hypotension, concern for septic shock 03/14/21: Pulm status stable and no acute critical care needs. Will sign off. 1. Wean vasopressor to off 2. Wean FIo2 as tolerated for sats >88% 3. Agree with repeat COVID and broad speck abx along with steroids 4. Guarded prognosis. CCT 31 minutes. Subjective Date of service: 03/14/21 Interval history: Successful transfer out of unit. Hemodynamically stable and no pulmonary issues. Objective - Constitutional Vitals: Vital Signs - 12hr 03/14/21 11:07 Temperature 98.8 F Pulse Rate 88 Respiratory 18 Rate Blood Pressure 105/53 O2 Sat by Pulse 94 Oximetry - Labs CBC & Chem 7: 03/13/21 07:34 03/13/21 07:34 Labs: Abnormal lab results 03/13/21 03/13/21 03/14/21 Range/Units 16:53 Unknown 11:42 POC Glucose 154 H 167 H (70-105) mg/dL Urine Creatinine 87.6 H (0.1-20.0) mg/dL Medications & Allergies - Medications Allergies/Adverse Reactions: Allergies No Known Allergies Allergy (Unverified 03/11/21 15:05) Home Medications: Home Medications Medication Instructions Recorded Confirmed Last Taken Type No Known Home Medications [No 03/12/21 03/12/21 Unknown History Reported Home Medications] Active Medications: Generic Name Dose Route Start Last Admin Trade Name Freq PRN Reason Stop Dose Admin Acetaminophen 650 mg 03/11/21 20:13 Acetaminophen 325 Mg Tab PO Q4H PRN Pain MILD(1-3)/Fever >100.5/OLSEN Dexamethasone 8 mg 03/12/21 18:00 03/12/21 17:49 Dexamethasone 4 Mg/Ml Vial IV 8 mg Q24H MARIA DOLORES Administration Dextrose 0 ml 03/11/21 16:48 Dextrose 10% *Hypoglycemia IV PRN PRN Hypoglycemia Heparin Sodium (Porcine) 5,000 unit 03/13/21 22:00 03/13/21 22:19 Heparin 5,000 Unit/1 Ml Vial SUB-Q 5,000 unit Q12HR MARIA DOLORES Administration Azithromycin 500 mg in 250 mls @ 250 mls/hr 03/12/21 18:00 03/13/21 18:30 Zithromax/Ns IV 03/15/21 18:59 250 mls/hr Q24H MARIA DOLORES Administration Ceftriaxone Sodium 2 gm in 100 mls @ 200 mls/hr 03/12/21 18:00 03/13/21 17:30 Rocephin/Ns 2 Gm/100 Ml IV 03/15/21 18:29 200 mls/hr Q24H MARIA DOLORES Administration Protocol Dextrose/Sodium Chloride 1,000 mls @ 100 mls/hr 03/11/21 23:00 03/14/21 03:11 D5/0.45ns IV 100 mls/hr DIRECT MARIA DOLORES Administration Metoclopramide HCl 5 mg 03/11/21 20:28 Metoclopramide 10 Mg/2 Ml Inj IV Q6H PRN Nausea And Vomiting Ondansetron HCl 4 mg 03/11/21 20:13 Ondansetron 4 Mg/2 Ml Inj IV Q8H PRN Nausea And Vomiting Oxycodone/Acetaminophen 1 tab 03/11/21 20:16 Oxycodone /Acetaminophen 5-325mg Tab PO Q6H PRN Pain, Moderate (4-6) Sodium Chloride 10 ml 03/11/21 22:00 03/13/21 22:19 Sodium Chloride 0.9% 10 Ml Flush Syringe IV 10 ml BID MARIA DOLORES Administration Sodium Chloride 10 ml 03/11/21 20:13 Sodium Chloride 0.9% 10 Ml Flush Syringe IV PRN PRN LINE FLUSH HEART Score - HEART Score Troponin: Troponin T 0.036 ng/mL (0.00-0.029) H D 03/11/21 21:07
--- NOTE | 2021-03-14 13:03 | Consultation ---
History of Present Illness - Reason for Consult Consult date: 03/14/21 - History of Present Illness 85-year-old male with past medical history diabetes, hypertension, dementia, recent COVID-19 [facility] due to hypoxia. Responded well to nonrebreather. He was diagnosed COVID-19 on March 02, and has been worsening since that time. Afebrile since admission with a white count 7.2. Improving MARYAM. Blood cultures no growth so far. Currently on dexamethasone, ceftriaxone, azithromycin. Currently on 3 L nasal cannula. Imaging personally reviewed: Chest x-ray: Bibasilar lung infiltrates Review of systems: Deferred to reduce to the risk of transmission of COVID-19 Past History Past Medical History: No medical history, other (prior COVID) Past Surgical History: No surgical history Social history: no significant social history Family history: hypertension Medications and Allergies Allergies Allergy/AdvReac Type Severity Reaction Status Date / Time No Known Allergies Allergy Unverified 03/11/21 15:05 Home Medications Medication Instructions Recorded Confirmed Last Taken Type No Known Home Medications [No 03/12/21 03/12/21 Unknown History Reported Home Medications] Active Meds: Active Medications Acetaminophen (Acetaminophen 325 Mg Tab) 650 mg PO Q4H PRN PRN Reason: Pain MILD(1-3)/Fever >100.5/OLSEN Dexamethasone (Dexamethasone 4 Mg/Ml Vial) 8 mg IV Q24H [facility] Last Admin: 03/12/21 17:49 Dose: 8 mg Dextrose (Dextrose 10% *Hypoglycemia) 0 ml IV PRN PRN PRN Reason: Hypoglycemia Heparin Sodium (Porcine) (Heparin 5,000 Unit/1 Ml Vial) 5,000 unit SUB-Q Q12HR [facility] Last Admin: 03/13/21 22:19 Dose: 5,000 unit Azithromycin (Zithromax/Ns) 500 mg in 250 mls @ 250 mls/hr IV Q24H MARIA DOLORES Stop: 03/15/21 18:59 Last Admin: 03/13/21 18:30 Dose: 250 mls/hr Ceftriaxone Sodium (Rocephin/Ns 2 Gm/100 Ml) 2 gm in 100 mls @ 200 mls/hr IV Q24H MARIA DOLORES; Protocol Stop: 03/15/21 18:29 Last Admin: 03/13/21 17:30 Dose: 200 mls/hr Dextrose/Sodium Chloride (D5/0.45ns) 1,000 mls @ 100 mls/hr IV DIRECT [facility] Last Admin: 03/14/21 03:11 Dose: 100 mls/hr Metoclopramide HCl (Metoclopramide 10 Mg/2 Ml Inj) 5 mg IV Q6H PRN PRN Reason: Nausea And Vomiting Ondansetron HCl (Ondansetron 4 Mg/2 Ml Inj) 4 mg IV Q8H PRN PRN Reason: Nausea And Vomiting Oxycodone/Acetaminophen (Oxycodone /Acetaminophen 5-325mg Tab) 1 tab PO Q6H PRN PRN Reason: Pain, Moderate (4-6) Sodium Chloride (Sodium Chloride 0.9% 10 Ml Flush Syringe) 10 ml IV BID [facility] Last Admin: 03/13/21 22:19 Dose: 10 ml Sodium Chloride (Sodium Chloride 0.9% 10 Ml Flush Syringe) 10 ml IV PRN PRN PRN Reason: LINE FLUSH Physical Examination - Physical Exam Narrative exam: Physical exam deferred to reduce risk of transmission of COVID-19. Please refer to primary team's note. - Constitutional Vitals: Vital Signs Temp Pulse Resp BP Pulse Ox 98.8 F 88 18 105/53 94 03/14/21 11:07 03/14/21 11:07 03/14/21 11:07 03/14/21 11:07 03/14/21 11:07 Temperature -Last 24 Hours Temperature 98.8 F Temperature 98.4 F Results - Labs CBC & Chem 7: 03/13/21 07:34 03/13/21 07:34 Labs: Abnormal lab results 03/13/21 03/13/21 03/14/21 Range/Units 16:53 Unknown 11:42 POC Glucose 154 H 167 H (70-105) mg/dL Urine Creatinine 87.6 H (0.1-20.0) mg/dL Assessment and Plan Cultures: Blood culture no growth so far COVID PCR positive as outpatient. A/P: 85-year-old male with past medical history diabetes, hypertension, dementia #Severe COVID-19 pneumonia: Patient presented with 10 days of symptoms, chest x- ray with diffuse bilateral infiltrates, admission O2 sats 89% on room air. Inflammatory markers elevated #Acute hypoxemic respiratory failure: Likely secondary to COVID-19 infection. Currently on 3L NC #MARYAM: renally dose medications, improving. Recommendations: -Dexamethasone 6 mg IV/PO daily for 10 days -Continue ceftriaxone 2 gm IV qday and azithromycin 500 mg PO qday, if procalcitonin <0.25 ng/mL stop antibiotics -Can DC with omnicef 300mg q12h to compelte the above 5 days -Anticoagulation per hospital protocol -Proning as able Thank you for the consult, we will continue to follow. Bina Mancini MD [facility] ([facility] O: [phone] F: [phone]
--- NOTE | 2021-03-14 17:45 | Ultrasound Report ---
ULTRASOUND RENAL INDICATION: moise. COMPARISON: No relevant prior imaging study available. FINDINGS: RIGHT KIDNEY: Size: 9 cm. Echogenicity: Increased. Cortical thickness: 0.7 cm. Hydronephrosis: None. Cyst or mass: None. Stones: None. LEFT KIDNEY: Size: 10.4 cm. Echogenicity: Grady increased. Cortical thickness: 1.4 cm. Hydronephrosis: None. Cyst or mass: None. Stones: None. Urinary Bladder: No significant abnormality. Free Fluid: None. Additional Findings: None. IMPRESSION 1. Negative for mass or obstruction. 2. Renal cortical thinning on the right. 3. Increased cortical echogenicity right greater than left compatible with chronic medical renal dise ase. Signer Name: Pablo Yun MD Signed: 03/14/2021 5:40 PM Workstation Name: [id number]
[2021-03-14] MEDS: cefTRIAXone/NS 2 GM/100 ML 2 GM/100 ML BAG IV SCH (19:23)
[2021-03-14] MEDS: dexAMETHasone 4 MG/ML VIAL IV SCH ×2 (19:23→22:06)
[2021-03-14] MEDS ORDERED: SODIUM CHLORIDE 0.9% 50 ML ONE (22:54)
[2021-03-14] MEDS: AZITHROMYCIN/NS 500 MG/250 ML 500 MG/250 ML BAG IV SCH (22:55)
[2021-03-15 11:01] LABS: BUN/Creatinine Ratio 34; Blood Urea Nitrogen 37 mg/dL (9-20); Calcium 8.7 mg/dL (8.4-10.2); Hemolysis Index 1
[2021-03-15] MEDS: DEXAMETHASONE 4 MG TAB PO SCH (12:14)
[2021-03-15] MEDS: HEPARIN 5,000 UNIT/1 ML VIAL SUB-Q SCH ×2 (12:14→22:40)
--- NOTE | 2021-03-15 13:47 | Progress Note ---
Assessment and Plan Cultures: Blood culture no growth so far COVID PCR positive as outpatient. A/P: 85-year-old male with past medical history diabetes, hypertension, dementia #Severe COVID-19 pneumonia: Patient presented with 10 days of symptoms, chest x- ray with diffuse bilateral infiltrates, admission O2 sats 89% on room air. Inflammatory markers elevated #Acute hypoxemic respiratory failure: Likely secondary to COVID-19 infection. Currently on room air #MARYAM: renally dose medications, improving. Recommendations: -Dexamethasone 6 mg IV/PO daily for 10 days -Continue ceftriaxone 2 gm IV qday and azithromycin 500 mg PO qday, if procalcitonin <0.25 ng/mL stop antibiotics -Can DC with omnicef 300mg q12h to compelte the above 5 days -Anticoagulation per hospital protocol -Proning as able Thank you for the consult, we will continue to follow. Bina Mancini MD [facility] ([facility] O: [phone] F: [phone] Subjective Date of service: 03/15/21 Interval history: Afebrile, normal white count. On room air. Objective - Exam Narrative Exam: Physical exam deferred to reduce risk of transmission of COVID-19. Please refer to primary team's note. - Constitutional Vitals: Vital Signs Temp Pulse Resp BP Pulse Ox 97.5 F L 94 H 18 129/62 92 03/14/21 23:24 03/14/21 23:24 03/14/21 23:24 03/14/21 23:24 03/14/21 23:24 Temperature -Last 24 Hours Temperature 97.5 F Temperature 97.5 F - Labs CBC & Chem 7: 03/13/21 07:34 03/15/21 10:15 Labs: Abnormal lab results 03/14/21 03/14/21 03/15/21 Range/Units 16:47 17:31 00:14 Sodium (137-145) mmol/L Chloride (98-107) mmol/L Carbon Dioxide (22-30) mmol/L BUN (9-20) mg/dL Glucose (75-100) mg/dL POC Glucose 132 H 131 H 125 H (70-105) mg/dL 03/15/21 03/15/21 03/15/21 Range/Units 07:30 10:15 11:32 Sodium 147 H (137-145) mmol/L Chloride 116.7 H (98-107) mmol/L Carbon Dioxide 19 L (22-30) mmol/L BUN 37 H (9-20) mg/dL Glucose 174 H (75-100) mg/dL POC Glucose 198 H 158 H (70-105) mg/dL
--- NOTE | 2021-03-15 14:59 | Progress Note ---
Assessment and Plan # Acute respiratory failure with hypoxia -Secondary to bilateral pneumonia -RT pcr pending -Supplemental oxygenation as needed -CCM consulted #Septic Shock POA (resolving) - s/p dopamine drip - was rehab [facility]. - maintain map > 65 - Bcx, Ucx, Scx pending - Rocephin IV and Zithromax IV. - CCM consulted. - ID consulted, appreciate recommendations #Acute metabolic encephalopathy (improving) - patient was apparenty functional prior to [place] [facility] [place] with , able to get groceries, etc. - confused on my encounter but appears to be improving from admission based on RN report. - likely due to underlying sepsis. # Bilateral pneumonia - IV antibiotics in the form of Zithromax and Rocephin - Rule out Covid- rt pcr pending # Acute kidney injury likely secondary to vasomotor nephropathy, hypernatremia, hyperchloremia - MIVF with D5 half-normal saline at 100 mL's per hour - Strict intake and output - Daily weights - Avoid nephrotoxic medications - Urine lites pending - Encourage PO free water intake - Consider nephrology consult if not improving - Trend BMP # Person under investigation for COVID-19 - COVID 19 PCR pending - contact/droplet isolation # [id number] syndrome - Patient may still be having active Covid - 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 - SSI, accucheck ACHS - Avoid hypoglycemia # Dementia Supportive care # Hyperkalemia (resolved) Calcium gluconate and Kayexalate given # DVT prophylaxis - On anticoagulation GI prophylaxis # Moderate Malnutrition -Dietary supplementation The high probability of a clinically significant, sudden or life threatening deterioration of the [multi] system(s) required my full and direct attention, intervention and personal management. The aggregate critical care time was [60] minutes. This time is in addition to time spent performing reported procedures but includes the following: [x] Data Review and interpretation [x] Patient assessment and monitoring of vital signs [x] Documentation [x] Medication orders and management Disposition Plan: icu Total Time Spent with Patient (Minutes): 60 History Interval history: This 85-year-old male with HTN, DM, dementia with recent COVID-19 pneumonia was a resident of a long term resented with severe respiratory distress via EMS. Patient was found to have a SPO2 in the 80s and placed on nonrebreather with improvement in oxygenation, blood glucose was found to be 78. Patient continued to have shortness of breath in the emergency department and became hypotensive. Patient was started on dopamine and admitted to the hospital service with con sults to ID and CCM. Hospital Course: 03/12/2021: Continue to wean O2 as tolerated. Advised RN to wean off dopamine gtt. If pressors support is needed, would recommend levophed instead however will defer to CCM. Called patient daughter Chika Harris for update. Per daughter, patient was covid positive jan 31 and admitted at [facility]. [facility] She states that he had a prolonged stay at rehab facility because he was positive again on Mar 02. Yesterday because of his oxygen saturation drop, it prompted patient to be admitted to our facility. After discussing the details of her father's clinical picture, she voiced that she would like patient to remain full code. Subjective Date of service: 03/15/21 Objective - Constitutional Vitals: Vital Signs - 12hr 03/15/21 10:53 Temperature 97.6 F Pulse Rate 102 H Respiratory 22 Rate Blood Pressure 137/86 O2 Sat by Pulse 95 Oximetry - Labs CBC & Chem 7: 03/13/21 07:34 03/15/21 10:15 Labs: Abnormal lab results 03/14/21 03/14/21 03/15/21 Range/Units 16:47 17:31 00:14 Sodium (137-145) mmol/L Chloride (98-107) mmol/L Carbon Dioxide (22-30) mmol/L BUN (9-20) mg/dL Glucose (75-100) mg/dL POC Glucose 132 H 131 H 125 H (70-105) mg/dL 03/15/21 03/15/21 03/15/21 Range/Units 07:30 10:15 11:32 Sodium 147 H (137-145) mmol/L Chloride 116.7 H (98-107) mmol/L Carbon Dioxide 19 L (22-30) mmol/L BUN 37 H (9-20) mg/dL Glucose 174 H (75-100) mg/dL POC Glucose 198 H 158 H (70-105) mg/dL HEART Score - HEART Score Troponin: Troponin T 0.036 ng/mL (0.00-0.029) H D 03/11/21 21:07
[2021-03-15] MEDS: cefTRIAXone/NS 2 GM/100 ML 2 GM/100 ML BAG IV SCH (19:37)
[2021-03-15] MEDS: AZITHROMYCIN/NS 500 MG/250 ML 500 MG/250 ML BAG IV SCH (19:44)
[2021-03-15] MEDS ORDERED: PETROLATUM TP SCH (22:00)
[2021-03-15] MEDS ORDERED: INSULIN GLARGINE 100 UNITS/ML SUB-Q SCH (22:00)
[2021-03-15] MEDS: METOPROLOL TARTRATE 25 MG TAB PO SCH (22:00)
[2021-03-15] MEDS ORDERED: metFORMIN XR 500MG TAB PO SCH (22:00)
[2021-03-15] MEDS ORDERED: [UNRECOGNIZED DRUG - OTHER] TP SCH (22:00)
[2021-03-16] MEDS: PETROLATUM,WHITE 30 GM OINT TP SCH ×2 (02:16→10:28)
[2021-03-16] MEDS: D5W/0.45% NACL 1,000 ML IV SCH (02:16)
[2021-03-16] MEDS ORDERED: SODIUM CHLORIDE 0.9% 50 ML ONE (06:33)
[2021-03-16] MEDS ORDERED: amLODIPine 10 MG TAB PO SCH (10:00)
[2021-03-16] MEDS ORDERED: NON-FORMULARY EACH (Atorvastatin Calcium [Lipitor] 80 MG Tablet) PO SCH (10:00)
[2021-03-16] MEDS ORDERED: CHOLECALCIFEROL (VIT D3) 1000 UNIT (25 mcg) TAB PO SCH (10:00)
[2021-03-16] MEDS ORDERED: GLIMEPIRIDE 4 MG TAB PO SCH (10:00)
[2021-03-16] MEDS: METOPROLOL TARTRATE 25 MG TAB PO SCH (10:27)
[2021-03-16] MEDS: HEPARIN 5,000 UNIT/1 ML VIAL SUB-Q SCH (10:27)
[2021-03-16] MEDS: DEXAMETHASONE 4 MG TAB PO SCH (10:27)
[2021-03-16 12:10] LABS: BUN/Creatinine Ratio 37; Blood Urea Nitrogen 37 mg/dL (9-20); Calcium 8.4 mg/dL (8.4-10.2); Hemolysis Index 9
[2021-03-16 12:52] VITALS: BP 118/66
--- NOTE | 2021-03-16 15:54 | Progress Note ---
Assessment and Plan Cultures: Blood culture no growth so far COVID PCR positive as outpatient. A/P: 85-year-old male with past medical history diabetes, hypertension, dementia #Severe COVID-19 pneumonia: Patient presented with 10 days of symptoms, chest x- ray with diffuse bilateral infiltrates, admission O2 sats 89% on room air. Inflammatory markers elevated #Acute hypoxemic respiratory failure: Likely secondary to COVID-19 infection. Currently on room air #MARYAM: renally dose medications, improving. Recommendations: -Dexamethasone 6 mg IV/PO daily for 10 days -Continue ceftriaxone 2 gm IV qday and azithromycin 500 mg PO qday, if procalcitonin <0.25 ng/mL stop antibiotics -Can DC with omnicef 300mg q12h to compelte the above 5 days -Anticoagulation per hospital protocol -Proning as able Thank you for the consult, we will continue to follow. Bina Mancini MD [facility] O: [phone] F: [phone] Subjective Date of service: 03/16/21 Interval history: Afebrile, normal white count. No acute changes. Doing well. Objective - Exam Narrative Exam: Physical exam deferred to reduce risk of transmission of COVID-19. Please refer to primary team's note. - Constitutional Vitals: Vital Signs Temp Pulse Resp BP Pulse Ox 98.1 F 78 22 118/66 96 03/16/21 11:53 03/16/21 11:53 03/16/21 11:53 03/16/21 11:53 03/16/21 11:53 Temperature -Last 24 Hours Temperature 98.1 F Temperature 98.5 F Temperature 97.8 F Temperature 98.3 F - Labs CBC & Chem 7: 03/13/21 07:34 03/16/21 11:29 Labs: Abnormal lab results 03/15/21 03/15/21 03/16/21 Range/Units 17:50 21:07 07:36 Chloride (98-107) mmol/L Carbon Dioxide (22-30) mmol/L BUN (9-20) mg/dL Glucose (75-100) mg/dL POC Glucose 148 H 227 H 242 H (70-105) mg/dL 03/16/21 03/16/21 Range/Units 11:29 11:50 Chloride 113.1 H (98-107) mmol/L Carbon Dioxide 19 L (22-30) mmol/L BUN 37 H (9-20) mg/dL Glucose 311 H (75-100) mg/dL POC Glucose 288 H (70-105) mg/dL
--- NOTE | 2021-03-16 16:05 | Progress Note ---
Assessment and Plan # Acute respiratory failure with hypoxia -Secondary to bilateral pneumonia -RT pcr pending -Supplemental oxygenation as needed -CCM consulted #Septic Shock POA (resolving) - s/p dopamine drip - was [facility]. - maintain map > 65 - Bcx, Ucx, Scx pending - Rocephin IV and Zithromax IV. - CCM consulted. - ID consulted, appreciate recommendations #Acute metabolic encephalopathy (improving) - [place] was apparenty functional [place] [facility] [place] , able to get groceries, etc. - confused on my encounter but appears to be improving from admission based on RN report. - likely due to underlying sepsis. 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 - SSI, accucheck ACHS - Avoid hypoglycemia # Dementia Supportive care # Hyperkalemia (resolved) Calcium gluconate and Kayexalate given # DVT prophylaxis - On anticoagulation GI prophylaxis # Moderate Malnutrition -Dietary supplementation The high probability of a clinically significant, sudden or life threatening deterioration of the [multi] system(s) required my full and direct attention, intervention and personal management. The aggregate critical care time was [60] minutes. This time is in addition to time spent performing reported procedures but includes the following: [x] Data Review and interpretation [x] Patient assessment and monitoring of vital signs [x] Documentation [x] Medication orders and management Disposition Plan: icu Total Time Spent with Patient (Minutes): 60 History Interval history: This 85-year-old male with HTN, DM, dementia with recent COVID-19 pneumonia was a resident of a longterm resented with severe respiratory distress via EMS. Patient was found to have a SPO2 in the 80s and placed on nonrebreather with improvement in oxygenation, blood glucose was found to be 78. Patient continued to have shortness of breath in the emergency department and became hypotensive. Patient was started on dopamine and admitted to the hospital service with con terits to ID and CCM. Hospital Course: 03/12/2021: Continue to wean O2 as tolerated. Advised RN to wean off dopamine gtt. If pressors support is needed, would recommend levophed instead however will defer to CCM. Called patient daughter Chika Harris for update. Per daughter, patient was covid positive jan [address] [facility]. He was subsequently discharged to [facility]. She states that he had a prolonged stay at rehab facility because he was positive again on Mar 02. Yesterday because of his oxygen saturation drop, it prompted patient to be admitted to our facility. After discussing the details of her father's clinical picture, she voiced that she would like patient to remain full code. Subjective Date of service: 03/16/21 Objective - Constitutional Vitals: Vital Signs - 12hr 03/16/21 03/16/21 03/16/21 05:52 08:45 10:26 Temperature 98.5 F Pulse Rate 88 Pulse Rate [ 86 From Monitor] Respiratory 20 18 Rate Blood Pressure 130/96 O2 Sat by Pulse 95 100 98 Oximetry 03/16/21 03/16/21 10:27 11:53 Temperature 98.1 F Pulse Rate 92 H 78 Pulse Rate [ From Monitor] Respiratory 22 Rate Blood Pressure 118/66 O2 Sat by Pulse 96 Oximetry - Labs CBC & Chem 7: 03/13/21 07:34 03/16/21 11:29 Labs: Abnormal lab results 03/15/21 03/15/21 03/16/21 Range/Units 17:50 21:07 07:36 Chloride (98-107) mmol/L Carbon Dioxide (22-30) mmol/L BUN (9-20) mg/dL Glucose (75-100) mg/dL POC Glucose 148 H 227 H 242 H (70-105) mg/dL 03/16/21 03/16/21 Range/Units 11:29 11:50 Chloride 113.1 H (98-107) mmol/L Carbon Dioxide 19 L (22-30) mmol/L BUN 37 H (9-20) mg/dL Glucose 311 H (75-100) mg/dL POC Glucose 288 H (70-105) mg/dL HEART Score - HEART Score Troponin: Troponin T 0.036 ng/mL (0.00-0.029) H D 03/11/21 21:07
== END 2021-03-16 13:02 | DRG 871 ==
LOC: ED 15:03 → 3A 18:00 → CC1 21:23 → 3A 03-13 22:05
PROVIDERS: ADMIT Internal Medicine; ATTEND Internal Medicine
PROC: 06HM33Z Insertion of Infusion Device into Right Femoral Vein, Percutaneous Approach (ICD-10-PCS; principal; 2021-03-11)
DX: A41.9 Sepsis, unspecified organism (principal); R65.21 Severe sepsis with septic shock; J96.01 Acute respiratory failure with hypoxia; N17.0 Acute kidney failure with tubular necrosis; J18.9 Pneumonia, unspecified organism; G93.41 Metabolic encephalopathy; E44.0 Moderate protein-calorie malnutrition; E87.0 Hyperosmolality and hypernatremia; I10 Essential (primary) hypertension; E11.65 Type 2 diabetes mellitus with hyperglycemia; D69.6 Thrombocytopenia, unspecified; E87.5 Hyperkalemia; F03.90 Unspecified dementia, unspecified severity, without behavioral disturbance, psychotic disturbance, mood disturbance, and anxiety; U09.9 Post COVID-19 condition, unspecified; E87.8 Other disorders of electrolyte and fluid balance, not elsewhere classified; Z68.24 Body mass index [BMI] 24.0-24.9, adult; Z82.49 Family history of ischemic heart disease and other diseases of the circulatory system
CPT/HCPCS: 36415; 71045; 76770; 80048; 80053; 80061; 82140; 82550; 82553; 82570; 82803; 82962; 83880; 84300; 84484; 84520; 85007; 85025; 85610; 85730; 87040; 93005; 93010; 94760; G0378; J3490; J7070; Q0162; J0456; J0696; J1100; J1265; J1610; J1644; J1650; J2405; J7030; J7042; J8540; U0003